=== PATIENT | female | born 1990 | race Caucasian/White ===

== ENCOUNTER 2017-07-12 15:10 | Emergency (ER) | payer OTHER, SELFPAY ==
[2017-07-12] MEDS ORDERED: IBUPROFEN 400 MG TAB ONE (15:56)
[2017-07-12] MEDS ORDERED: DEXAMETHASONE 10 MG/ML VIAL ONE (16:08)
--- NOTE | 2017-07-12 17:36 | EDPHYS ---
Physician Documentation [facility] Name: Delia Salgado Age: 27 yrs Sex: Female : 1990 Arrival Date: 07/12/2017 Time: 15:10 Bed 12 Private MD: ED Physician Jayce Curiel HPI: 07/12 16:01 This 27 yrs old Female presents to ER via Ambulatory with complaints of Sore pm1 Throat. 16:01 The patient presents with sore throat. The patient describes throat pain as constant, pm1 scratchy. Onset: The symptoms/episode began/occurred this morning. Severity of symptoms: in the emergency department the symptoms are actually worse. Modifying factors: the symptoms are aggravated by swallowing, Patient's oral intake status: good Denies contact with similarly ill indivduals. Associated signs and symptoms: Pertinent positives: fever, flu-like symptoms, nausea, Pertinent negatives chest pain, diarrhea, headache, vomiting. The patient has not experienced similar symptoms in the past. The patient has not recently seen a physician. 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 ROS: 16:01 Eyes: Negative for injury, pain, redness, and discharge. pm1 16:01 Neck: Negative for injury, pain, and swelling, Cardiovascular: Negative for chest pain, palpitations, and edema, Respiratory: Negative for shortness of breath, cough, wheezing, and pleuritic chest pain, Abdomen/GI: Negative for abdominal pain, nausea, vomiting, diarrhea, and constipation, Back: Negative for injury and pain, : Negative for injury, bleeding, discharge, and swelling, MS/Extremity: Negative for injury and deformity, Skin: Negative for injury, rash, and discoloration, Neuro: Negative for headache, weakness, numbness, tingling, and seizure. 16:01 Constitutional: Positive for body aches, fever, Negative for poor PO intake. 16:01 ENT: Positive for sore throat, Negative for ear pain, sinus congestion, sinus pain. Exam: 16:01 Constitutional: This is a well developed, well nourished patient who is awake, alert, pm1 and in no acute distress. Head/Face: Normocephalic, atraumatic. Eyes: Pupils equal round and reactive to light, extra-ocular motions intact. Lids and lashes normal. Conjunctiva and sclera are non-icteric and not injected. Cornea within normal limits. Periorbital areas with no swelling, redness, or edema. Neck: Trachea midline, no thyromegaly or masses palpated, and no cervical lymphadenopathy. Supple, full range of motion without nuchal rigidity, or vertebral point tenderness. No Meningismus. 16:01 Chest/axilla: Normal chest wall appearance and motion. Nontender with no deformity. No lesions are appreciated. Cardiovascular: Regular rate and rhythm with a normal S1 and S2. No gallops, murmurs, or rubs. Normal PMI, no JVD. No pulse deficits. Respiratory: Lungs have equal breath sounds bilaterally, clear to auscultation and percussion. No rales, rhonchi or wheezes noted. No increased work of breathing, no retractions or nasal flaring. Abdomen/GI: Soft, non-tender, with normal bowel sounds. No distension or tympany. No guarding or rebound. No evidence of tenderness throughout. Back: No spinal tenderness. No costovertebral tenderness. Full range of motion. Skin: Warm, dry with normal turgor. Normal color with no rashes, no lesions, and no evidence of cellulitis. MS/ Extremity: Pulses equal, no cyanosis. Neurovascular intact. Full, normal range of motion. 16:01 ENT: External ear(s): are unremarkable, Ear canal(s): are normal, TM's: are normal, Nose: is normal, Mouth: is normal, Posterior pharynx: Airway: normal, no evidence of obstruction, patent, Tonsils: bilaterally enlarged, with erythema, with exudate, no ulcerations, Uvula: normal, midline, peritonsillar mass, is not appreciated, pooling of secretions, is not appreciated. 16:01 Neuro: Orientation: is normal, Motor: is normal, moves all fours, strength is normal, strength is 5/5 in all extremities, Gait: is steady, at a normal pace, without difficulty. Vital Signs: 15:38 BP 139 / 65; Pulse 111; Resp 24; Temp 101.8; Pulse Ox 98% on R/A; Weight 113.4 kg; ph Height 5 ft. 4 in. (162.56 cm); Pain 8/10; 17:43 Pulse 98; Resp 18; Temp 99.6(TE); ss 15:38 Body Mass Index 42.91 (113.40 kg, 162.56 cm) ph MDM: 15:50 Patient medically screened. pm1 17:35 Data reviewed: vital signs. Data interpreted: Pulse oximetry: on room air is 98 %. pm1 Interpretation: normal. Counseling: I had a detailed discussion with the patient and/or guardian regarding: the historical points, exam findings, and any diagnostic results supporting the discharge/admit diagnosis, lab results, the need for outpatient follow up, to return to the emergency department if symptoms worsen or persist or if there are any questions or concerns that arise at home. 07/12 15:50 Order name: Strep; Complete Time: 16:24 pm1 07/12 15:50 Order name: Flu; Complete Time: 16:24 pm1 07/12 16:24 Order name: Throat Culture EDOK 07/12 16:31 Order name: [place] Screen Profile; Complete Time: 17:35 pm1 Administered Medications: 16:06 Drug: Ibuprofen 800 mg Route: PO; ph 17:43 Follow up: Response: No adverse reaction; Pain is decreased ss 16:12 Drug: Decadron 10 mg Route: IM; Site: right deltoid; ph 17:43 Follow up: Response: No adverse reaction ss Disposition: 07/12/17 17:36 Discharged to Home. Impression: Acute pharyngitis. - Condition is Stable. - Discharge Instructions: Pharyngitis, Salt Water Gargle. - Prescriptions for Amoxicillin 500 mg Oral Capsule - take 1 capsule by ORAL route every 8 hours for 10 days; 30 tablet. - Medication Reconciliation Form, Thank You Letter, Antibiotic Education form. - Follow up: Emergency Department; When: As needed; Reason: Worsening of condition. Follow up: Private Physician; When: 2 - 3 days; Reason: Recheck today's complaints, Continuance of care, Re-evaluation by your physician. - Problem is new. - Symptoms have improved. Addendum: 07/14/2017 07:35 Co-signature as Attending Physician, Jayce Curiel MD I agree with the assessment and w a plan of care. Signatures: Dispatcher [employer] Junie Luna RN RN ss Hall, Patricia, RN RN ph Bennie Hobbs, RADIOLOGY NURSE RADIOLOGY NURSE pm1 Jayce Curiel MD MD ca
--- NOTE | 2017-07-12 17:36 | ER ---
Nurse's Notes [facility] Name: Delia Salgado Age: 27 yrs Sex: Female : 1990 Arrival Date: 07/12/2017 Time: 15:10 Bed 12 Private MD: Diagnosis: Acute pharyngitis Presentation: 07/12 15:36 Presenting complaint: Patient states: My throat started hurting really bad this morning ph and I have been throwing up. I am also feeling SOB." Pt reports sore throat, cough, N/V, and fever, denies diarrhea. Transition of care: patient was not received from another setting of care. Onset of symptoms was July 12, 2017. Care prior to arrival: None. 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 Screenin:05 Abuse screen: Denies threats or abuse. Denies injuries from another. Nutritional ph screening: No deficits noted. Tuberculosis screening: No symptoms or risk factors identified. Fall Risk None identified. Assessment: 16:04 General: Appears in no apparent distress. uncomfortable, Behavior is calm, cooperative, ph appropriate for age, Reports chills for 0-12 hours. Pain: Complains of pain in throat and "all over". Neuro: Level of Consciousness is awake, alert, obeys commands, Oriented to person, place, time, situation. Cardiovascular: Capillary refill < 3 seconds Patient's skin is warm and dry. Respiratory: Airway is patent Respiratory effort is even, unlabored, Breath sounds are clear bilaterally. GI: Reports nausea, vomiting. EENT: Throat is reddened has enlarged tonsils bilaterally. Musculoskeletal: Circulation, motion, and sensation intact. Range of motion: intact in all extremities. Vital Signs: 15:38 BP 139 / 65; Pulse 111; Resp 24; Temp 101.8; Pulse Ox 98% on R/A; Weight 113.4 kg; ph Height 5 ft. 4 in. (162.56 cm); Pain 8/10; 17:43 Pulse 98; Resp 18; Temp 99.6(TE); ss 15:38 Body Mass Index 42.91 (113.40 kg, 162.56 cm) ph ED Course: 15:10 Patient arrived in ED. as 15:38 Triage completed. ph 15:39 Arm band placed on. ph 15:50 Bennie Hobbs NP is PHCP. pm1 15:50 Jayce Curiel MD is Attending Physician. pm1 16:04 Brit Cerda, RN is Primary Nurse. ph 16:05 Patient has correct armband on for positive identification. Bed in low position. Call light in reach. Side rails up X 1. 16:55 Initial lab(s) drawn, by me, sent to lab. 3 17:43 No provider procedures requiring assistance completed. Patient did not have IV access ss during this emergency room visit. Administered Medications: 16:06 Drug: Ibuprofen 800 mg Route: PO; ph 17:43 Follow up: Response: No adverse reaction; Pain is decreased ss 16:12 Drug: Decadron 10 mg Route: IM; Site: right deltoid; ph 17:43 Follow up: Response: No adverse reaction ss Outcome: 17:36 Discharge ordered by . pm1 17:43 Discharged to home ambulatory. ss 17:43 Condition: good 17:43 Discharge instructions given to patient, family, Instructed on discharge instructions, follow up and referral plans. medication usage, Demonstrated understanding of instructions, follow-up care, medications, Prescriptions given X 1. 17:44 Patient left the ED. ss Signatures: Sirisha Yepez Shelby, RN RN Brit Cerda, JOANNE RN Bennie Hobbs NP TESTING AND REGULATING TECHNICIAN pm1 Shoshana Morgan 3
== END 2017-07-12 17:44 | disposition home or self-care (01) ==
LOC: ER 15:10
DX: J02.9 Acute pharyngitis, unspecified (principal); F17.210 Nicotine dependence, cigarettes, uncomplicated
CPT/HCPCS: 36415; 86308; 87070; 87081; 87804; 96372; 99283; J1100

== ENCOUNTER 2017-08-30 19:18 | Emergency (ER) | payer SELFPAY ==
[2017-08-30] MEDS ORDERED: ALBUTEROL 2.5 MG/3 ML NEB SOL ONE (19:45)
[2017-08-30 20:16] LABS: Absolute Lymphocytes (CBC) 3.9 K/uL (0.7-4.9); Absolute Monocytes 1.2 K/uL (0.1-1.3); Absolute Neutrophil 8.3 K/uL (1.8-8.0); Basophils % 0.4 % (0-1.3); Eosinophils % 3.4 % (0-4.4); Hematocrit 41.2 % (36.0-45.0); Lymphocytes % 28.4 % (15.3-44.8); MCH 28.9 pg (27.0-35.0); MCV 86.6 fL (80-100); MPV 9.1 fL (7.6-11.3); Monocytes % 8.3 % (3.3-12.3); RBC Red Blood Cell Count 4.76 M/uL (3.86-4.86)
--- NOTE | 2017-08-30 20:19 | RAD REPORT ---
EXAM DESCRIPTION: Lui Pa And Lat (2 Views)08/30/2017 8:08 pm CLINICAL HISTORY: sob COMPARISON: None FINDINGS: An 11 millimeter nodular opacity overlies the left upper lobe. The right lung appears juli ar. The heart is normal size IMPRESSION: 11 millimeter nodular opacity overlying left upper lobe may represent a pulmonary nodul ar confluence of ribs and vessels. It is recommended that the patient have oblique, frontal and apica l lordotic views of the chest for further evaluation
[2017-08-30 20:27] LABS: BUN Blood Urea Nitrogen 19 mg/dL (6-20); Bicarbonate 23 mEq/L (21-31); Glucose Level 88 mg/dL (65-120); Potassium 3.7 mEq/L (3.6-5.0); Sodium Level 136 mEq/L (135-145)
[2017-08-30 20:29] LABS: Urine Bacteria <20 /HPF (<20); Urine RBC <5 /HPF (NONE SEEN)
[2017-08-30 20:30] LABS: Urine Blood NEGATIVE (NEG); Urine Glucose NEGATIVE (NEG); Urine Protein NEGATIVE (NEG); Urine pH 5.5 (5.0-7.0)
[2017-08-30 20:30] LABS: Urine Amorphous Sediment 1+ /HPF (NONE SEEN); Urine Culture Reflex Order NOT NEEDED; Urine Mucus 1+ /HPF (NONE SEEN)
--- NOTE | 2017-08-30 20:55 | RAD REPORT ---
EXAM DESCRIPTION: RAD - Chest W/ Apical Lordotic - 08/30/2017 8:40 pm CLINICAL HISTORY: sob FINDINGS: On the apical lordotic view the nodular opacity persists but it has a central lucency. Thi s which probably indicates confluence of ribs and vessels. A cavitating nodule can have this appearan ce. However, on the oblique views the nodular opacity is not clearly seen. In all likelihood the opacity represents confluence of ribs and vessels. As a precaution it is recomm ended that the patient have a followup frontal chest film in 3 months. If the nodule is not visualize d at that time then no further workup would be recommended
--- NOTE | 2017-08-30 20:56 | RAD REPORT ---
EXAM DESCRIPTION: RAD - Chest W Obliques - 08/30/2017 8:42 pm CLINICAL HISTORY: sob FINDINGS: On the apical lordotic view the nodular opacity persists but it has a central lucency. This which pro bably indicates confluence of ribs and vessels. A cavitating nodule can have this appearance. However, on the oblique views the nodular opacity is not clearly seen. In all likelihood the opacity represents confluence of ribs and vessels. As a precaution it is recomm ended that the patient have a followup frontal chest film in 3 months. If the nodule is not visualize d at that time then no further workup would be recommended
--- NOTE | 2017-08-30 21:07 | EDPHYS ---
Physician Documentation [facility] Name: Delia Salgado Age: 27 yrs Sex: Female : 1990 Arrival Date: 08/30/2017 Time: 19:19 Bed 30 Private MD: ED Physician Hao Terry HPI: 08/30 19:42 This 27 yrs old Female presents to ER via Ambulatory with complaints of rn Breathing Difficulty. 19:42 The patient has shortness of breath at rest, that woke him/her from sleep. Onset: The rn symptoms/episode began/occurred 2 week(s) ago. Duration: The symptoms are intermittent. The patient's shortness of breath is aggravated by nothing, is alleviated by nothing. Severity of symptoms: At their worst the symptoms were moderate in the emergency department the symptoms have improved. The patient has experienced similar episodes in the past. The patient has not recently seen a physician. Reports told in past has obstructive sleep apnea, can't afford CPAP, reports 2 weeks of intermittent sob, wakes up from sleep unable to breath, no fever/cough, better during day but is falling asleep randomly, no chest pain, no hx of dvt/pe. No trauma. . 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 - Social history:: Smoking status: Patient uses tobacco products, smokes one-half pack cigarettes per day. - Ebola Screening: : No symptoms or risks identified at this time. - Family history:: not pertinent. - Hospitalizations: : No recent hospitalization is reported. ROS: 19:42 Constitutional: Negative for fever, chills, and weight loss, Eyes: Negative for injury, rn pain, redness, and discharge, Neck: Negative for injury, pain, and swelling, Cardiovascular: Negative for chest pain, palpitations, and edema, Respiratory: Negative for cough, wheezing, and pleuritic chest pain, Abdomen/GI: Negative for abdominal pain, nausea, vomiting, diarrhea, and constipation, Back: Negative for injury and pain, MS/Extremity: Negative for injury and deformity, Skin: Negative for injury, rash, and discoloration, Neuro: Negative for headache, weakness, numbness, tingling, and seizure. Exam: 19:42 Constitutional: This is a well developed, well nourished patient who is awake, alert, rn and in no acute distress. Walked to room without difficulty Head/Face: Normocephalic, atraumatic. Eyes: Pupils equal round and reactive to light, extra-ocular motions intact. Lids and lashes normal. Conjunctiva and sclera are non-icteric and not injected. Cornea within normal limits. Periorbital areas with no swelling, redness, or edema. Cardiovascular: Regular rate and rhythm with a normal S1 and S2. No gallops, murmurs, or rubs. Normal PMI, no JVD. No pulse deficits. Respiratory: Clear bilateral breath sounds, no wheezing, + mild tachypnea Abdomen/GI: Soft, non-tender, with normal bowel sounds. No distension or tympany. No guarding or rebound. No evidence of tenderness throughout. Skin: Warm, dry with normal turgor. Normal color with no rashes, no lesions, and no evidence of cellulitis. MS/ Extremity: Pulses equal, no cyanosis. Neurovascular intact. Full, normal range of motion. Equal circumference. Neuro: Awake and alert, GCS 15, oriented to person, place, time, and situation. Cranial nerves II-XII grossly intact. Motor strength 5/5 in all extremities. Sensory grossly intact. Cerebellar exam normal. Normal gait. Vital Signs: 19:26 BP 153 / 104; Pulse 96; Resp 22; Temp 97.4; Pulse Ox 98% on R/A; Weight 113.4 kg; tl2 Height 5 ft. 4 in. (162.56 cm); Pain 0/10; 21:02 BP 123 / 84; Pulse 80; Resp 18; Pulse Ox 97% on 2 lpm NC; rk2 19:26 Body Mass Index 42.91 (113.40 kg, 162.56 cm) tl2 MDM: 19:29 Patient medically screened. rn 21:05 Differential diagnosis: Bronchitis pneumonia, Pneumothorax pulmonary edema, reactive rn airway disease, smoking related, DEBRA. Data reviewed: vital signs, nurses notes, lab test result(s), EKG, radiologic studies, and as a result, I will. Counseling: I had a detailed discussion with the patient and/or guardian regarding: the historical points, exam findings, and any diagnostic results supporting the discharge/admit diagnosis, lab results, radiology results, the need for outpatient follow up, to return to the emergency department if symptoms worsen or persist or if there are any questions or concerns that arise at home. Counseling: I had a detailed discussion with the patient and/or guardian regarding: smoking cessation. Response to treatment: the patient's symptoms have mildly improved after treatment, and as a result, I will discharge patient. Special discussion: I discussed with the patient/guardian in detail that at this point there is no indication for admission to the hospital. It is understood, however, that if the symptoms persist or worsen the patient needs to return immediately for re-evaluation. Based on the history and exam findings, there is no indication for further emergent testing or inpatient evaluation. I discussed with the patient/guardian the need to see the primary care provider for further evaluation of the symptoms. I discussed with the patient/guardian the need to see the medical technologist hematology for further evaluation of the symptoms. 21:05 Special discussion: I discussed with the patient the need to follow-up with the rn PCP/specialist for the noted incidental finding on X-ray/CT scanning. 08/30 19:37 Order name: CBC with Diff; Complete Time: 20:08/30 19:37 Order name: Basic Metabolic Panel; Complete Time: 20:08/30 19:37 Order name: Urine Microscopic Only; Complete Time: 20:08/30 19:37 Order name: Troponin (emerg Dept Use Only); Complete Time: 20:08/30 19:37 Order name: BNP; Complete Time: 20:59 08/30 19:37 Order name: D-Dimer; Complete Time: 21:05 08/30 19:37 Order name: IV Start; Complete Time: 20:07 08/30 19:37 Order name: EKG; Complete Time: 19:37 08/30 19:37 Order name: XRAY Chest Pa And Lat (2 Views); Complete Time: 20:08/30 20:11 Order name: Urine Dipstick--Ancillary (enter results); Complete Time: 20:59 eb 08/30 20:11 Order name: Urine --Ancillary (enter results); Complete Time: 20:59 eb 08/30 20:23 Order name: Chest W/ Apical Lordotic; Complete Time: 20:59 EDVA 08/30 20:24 Order name: Chest W Obliques; Complete Time: 20:59 EDVA 08/30 19:37 Order name: Urine Test (obtain specimen); Complete Time: 20:06 rn 08/30 19:37 Order name: Urine Dipstick-Ancillary (obtain specimen); Complete Time: 20:06 rn 08/30 19:37 Order name: EKG - Nurse/Tech; Complete Time: 20:31 rn 08/30 20:23 Order name: Labs - recollect needed; Complete Time: 20:48 eb Administered Medications: 19:56 Drug: Albuterol 2.5 mg Route: Inhalation; rk2 Disposition: 08/30/17 21:06 Discharged to Home. Impression: Dyspnea, unspecified. - Condition is Stable. - Discharge Instructions: Shortness of Breath, Smoking Cessation. - Prescriptions for Albuterol Sulfate 90 mcg/actuation - inhale 1-2 puff by INHALATION route every 4-6 hours; 1 Inhaler. - Medication Reconciliation Form, Thank You Letter, Antibiotic Education, Prescription Opioid Use form. - Follow up: Private Physician; When: As needed; Reason: Recheck today's complaints, Re-evaluation by your physician. - Problem is new. - Symptoms have improved. Signatures: Dispatcher [employer] EDVA Hao Terry MD MD rn Knox, Taylor, RN RN tl2 Naomy Ellis RN RN rk2 Barb Harris Corrections: (The following items were deleted from the chart) 21:29 21:06 08/30/2017 21:06 Discharged to Home. Impression: Dyspnea, unspecified. Condition rk2 is Stable. Forms are Medication Reconciliation Form, Thank You Letter, Antibiotic Education, Prescription Opioid Use. Follow up: Private Physician; When: As needed; Reason: Recheck today's complaints, Re-evaluation by your physician. Problem is new. Symptoms have improved. rn
--- NOTE | 2017-08-30 21:07 | ER ---
Nurse's Notes [facility] Name: Delia Salgado Age: 27 yrs Sex: Female : 1990 Arrival Date: 08/30/2017 Time: 19:19 Bed 30 Private MD: Diagnosis: Dyspnea, unspecified Presentation: 08/30 19:24 Presenting complaint: Patient states: I've been having problems with my sleep apnea and tl2 I wake up with difficulty breathing. I've been having difficulty breathing during the day and I think I pass out or fall asleep randomly. Denies cough or congestion. Transition of care: patient was not received from another setting of care. Onset of symptoms was August 16, 2017. Risk Assessment: Do you want to hurt yourself or someone else? Patient reports no desire to harm self or others. Initial Sepsis Screen: Does the patient meet any 2 criteria? No. Patient's initial sepsis screen is negative. Does the patient have a suspected source of infection? No. Patient's initial sepsis screen is negative. Care prior to arrival: None. 19:24 Method Of Arrival: Ambulatory tl2 19:24 Acuity: GARETH 3 tl2 Triage Assessment: 19:26 General: Appears in no apparent distress. comfortable, Behavior is calm, cooperative, tl2 appropriate for age. Pain: Denies pain. Respiratory: Reports shortness of breath Airway is patent Respiratory effort is even, unlabored, Respiratory pattern is regular, symmetrical, Onset: The symptoms/episode began/occurred 2 weeks ago, the patient has mild shortness of breath. 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 - Social history:: Smoking status: Patient uses tobacco products, smokes one-half pack cigarettes per day. - Ebola Screening: : No symptoms or risks identified at this time. - Family history:: not pertinent. - Hospitalizations: : No recent hospitalization is reported. Screenin:28 Abuse screen: Denies threats or abuse. Nutritional screening: No deficits noted. tl2 Tuberculosis screening: No symptoms or risk factors identified. Fall Risk None identified. Assessment: 19:30 Respiratory: Airway is patent Respiratory effort is even, unlabored, Respiratory rk2 pattern is regular, symmetrical, Breath sounds with wheezes bilaterally. 19:30 General: Appears in no apparent distress. well developed, well nourished, Behavior is rk2 calm, cooperative. Neuro: Level of Consciousness is alert, obeys commands, Oriented to person, place, time, situation. Cardiovascular: Rhythm is sinus rhythm. Derm: Skin is pink, warm \T\ dry. 21:01 Reassessment: Placed pt. onto oxygen via NA, O2 sats drop while pt. is sleeping to 89%. rk2 Vital Signs: 19:26 BP 153 / 104; Pulse 96; Resp 22; Temp 97.4; Pulse Ox 98% on R/A; Weight 113.4 kg; tl2 Height 5 ft. 4 in. (162.56 cm); Pain 0/10; 21:02 BP 123 / 84; Pulse 80; Resp 18; Pulse Ox 97% on 2 lpm NC; rk2 19:26 Body Mass Index 42.91 (113.40 kg, 162.56 cm) tl2 ED Course: 19:19 Patient arrived in ED. am2 19:26 Triage completed. tl2 19:26 Arm band placed on right wrist. tl2 19:29 Hao Terry MD is Attending Physician. rn 19:30 Patient has correct armband on for positive identification. Bed in low position. Call rk2 light in reach. 19:38 Naomy Ellis, RN is Primary Nurse. rk2 20:05 Patient moved to radiology via wheelchair. kc2 20:05 X-ray completed. Patient tolerated procedure well. kc2 20:06 Patient moved back from radiology. kc2 20:07 XRAY Chest Pa And Lat (2 Views) In Process Unspecified. EDMS 20:31 Chest W Obliques Sent. rk2 20:31 Chest W/ Apical Lordotic Sent. rk2 20:40 Chest W/ Apical Lordotic In Process Unspecified. EDMS 20:40 Chest W Obliques In Process Unspecified. EDMS 21:28 No provider procedures requiring assistance completed. IV discontinued. rk2 Administered Medications: 19:56 Drug: Albuterol 2.5 mg Route: Inhalation; rk2 Outcome: 21:06 Discharge ordered by . rn 21:28 Discharged to home ambulatory. rk2 21:28 Condition: good 21:28 Discharge instructions given to patient, Prescriptions given X 1. 21:29 Patient left the ED. rk2 Signatures: Dispatcher [employer] EDMS Hao Terry MD MD rn Carr, Kelsie kc2 Nayana Stein RN RN tl2 Kym Doherty Rhonda, RN RN rk2
--- NOTE | 2017-08-31 10:36 | EKG ---
Test Date: 2017-08-30 Test Time: 20:27:31 Potato Chip Maker: NOLBERTO MEASUREMENT RESULTS: Intervals: Rate: 86 OH: 116 QRSD: 90 QT: 380 QTc: 454 [place]: P: 8 OH: 116 QRS: 3 T: -8 INTERPRETIVE STATEMENTS: Normal sinus rhythm Possible Inferior infarct, age undetermined Abnormal ECG No previous ECG available for comparison Electronically Signed On 08-31-17 10:34:52 CDT by Daryn Hendricks
== END 2017-08-30 21:29 | disposition home or self-care (01) ==
LOC: ER 19:18
DX: R06.00 Dyspnea, unspecified (principal); F17.210 Nicotine dependence, cigarettes, uncomplicated; G47.33 Obstructive sleep apnea (adult) (pediatric)
CPT/HCPCS: 36415; 71021; 71022; 71046; 80048; 81003; 81015; 81025; 83880; 84484; 85025; 85379; 93005; 99284

== ENCOUNTER 2018-04-11 08:28 | Emergency (ER) | payer SELFPAY ==
--- NOTE | 2018-04-11 09:11 | EDPHYS ---
Physician Documentation [facility] Name: Delia Salgado Age: 28 yrs Sex: Female : 1990 Arrival Date: 04/11/2018 Time: 08:31 Bed 6 Private MD: None, None ED Physician Hao Terry HPI: 04/11 09:12 This 28 yrs old Female presents to ER via Ambulatory with complaints of jr8 Cough, Vomiting, Breathing Difficulty. 09:12 The patient or guardian reports cough, that is intermittent, described as moderate, jr8 with productive sputum, that is yellow. Onset: The symptoms/episode began/occurred gradually, 2 week(s) ago. Severity of symptoms: At their worst the symptoms were moderate, in the emergency department the symptoms are unchanged. Modifying factors: The symptoms are alleviated by nothing, the symptoms are aggravated by nothing. Associated signs and symptoms: Pertinent positives: rhinorrhea, sore throat. The patient has not experienced similar symptoms in the past. The patient has not recently seen a physician. 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 - Social history:: Smoking status: Patient uses tobacco products, smokes one-half pack cigarettes per day. - Ebola Screening: : Patient negative for fever greater than or equal to 101.5 degrees Fahrenheit, and additional compatible Ebola Virus Disease symptoms Patient denies exposure to infectious person Patient denies travel to an Ebola-affected area in the 21 days before illness onset No symptoms or risks identified at this time. ROS: 09:12 Eyes: Negative for injury, pain, redness, and discharge, Neck: Negative for injury, jr8 pain, and swelling, Cardiovascular: Negative for chest pain, palpitations, and edema, Abdomen/GI: Negative for abdominal pain, nausea, vomiting, diarrhea, and constipation, Back: Negative for injury and pain, MS/Extremity: Negative for injury and deformity, Skin: Negative for injury, rash, and discoloration, Neuro: Negative for headache, weakness, numbness, tingling, and seizure. 09:12 Constitutional: Negative for body aches, chills, fever. 09:12 ENT: Positive for rhinorrhea, sinus congestion, sore throat. 09:12 Respiratory: Positive for cough, Negative for shortness of breath, wheezing. Exam: 09:12 Eyes: Pupils equal round and reactive to light, extra-ocular motions intact. Lids and jr8 lashes normal. Conjunctiva and sclera are non-icteric and not injected. Cornea within normal limits. Periorbital areas with no swelling, redness, or edema. Neck: Trachea midline, no thyromegaly or masses palpated, and no cervical lymphadenopathy. Supple, full range of motion without nuchal rigidity, or vertebral point tenderness. No Meningismus. Cardiovascular: Regular rate and rhythm with a normal S1 and S2. No gallops, murmurs, or rubs. Normal PMI, no JVD. No pulse deficits. Respiratory: Lungs have equal breath sounds bilaterally, clear to auscultation and percussion. No rales, rhonchi or wheezes noted. No increased work of breathing, no retractions or nasal flaring. Abdomen/GI: Soft, non-tender, with normal bowel sounds. No distension or tympany. No guarding or rebound. No evidence of tenderness throughout. Back: No spinal tenderness. No costovertebral tenderness. Full range of motion. Skin: Warm, dry with normal turgor. Normal color with no rashes, no lesions, and no evidence of cellulitis. MS/ Extremity: Pulses equal, no cyanosis. Neurovascular intact. Full, normal range of motion. Neuro: Awake and alert, GCS 15, oriented to person, place, time, and situation. Cranial nerves II-XII grossly intact. Motor strength 5/5 in all extremities. Sensory grossly intact. Cerebellar exam normal. Normal gait. 09:12 ENT: External ear(s): are unremarkable, Ear canal(s): are normal, clear, TM's: are normal, no evidence of bulging, no dullness, no erythema, no fluid levels, no hemotympanum, no rupture, normal bony landmarks, normal mobility, Nose: External nose: no obvious acute abnormality, Nasal septum: is midline, Nasal mucosa: moist, Turbinates: are swollen bilaterally, Mouth: Lips: moist, Oral mucosa: pink and intact, moist, Gums: pink, Tongue: is moist, Posterior pharynx: Airway: patent, Tonsils: bilaterally enlarged, with erythema, no exudate, no ulcerations, Uvula: midline, no erythema, edematous, swelling, is not appreciated, erythema, is not appreciated. Vital Signs: 08:43 BP 116 / 87; Pulse 96; Resp 16; Pulse Ox 96% on R/A; Weight 113.4 kg; Height 5 ft. 4 ch in. (162.56 cm); Pain 5/10; 09:31 BP 110 / 58; Pulse 84; Resp 15; Temp 98.3; Pulse Ox 99% on R/A; Pain 5/10; ch 08:43 Body Mass Index 42.91 (113.40 kg, 162.56 cm) ch MDM: 08:38 Patient medically screened. jr8 09:09 Data reviewed: vital signs, nurses notes, lab test result(s), and as a result, I will jr8 discharge patient. Data interpreted: Pulse oximetry: on room air is 96 %. Interpretation: normal. Counseling: I had a detailed discussion with the patient and/or guardian regarding: the historical points, exam findings, and any diagnostic results supporting the discharge/admit diagnosis, lab results, the need for outpatient follow up, a family practitioner, to return to the emergency department if symptoms worsen or persist or if there are any questions or concerns that arise at home. 04/11 09:00 Order name: Urine Dipstick--Ancillary (enter results); Complete Time: 09:24 bd 04/11 09:00 Order name: Urine --Ancillary (enter results); Complete Time: 09:24 bd 04/11 09:09 Order name: Strep jr8 Administered Medications: No medications were administered Disposition: 11:49 Co-signature as Attending Physician, Hao Terry MD. rn Disposition: 04/11/18 09:10 Discharged to Home. Impression: Acute pharyngitis, Acute upper respiratory infection, unspecified. - Condition is Stable. - Discharge Instructions: Pharyngitis, Upper Respiratory Infection, Adult. - Prescriptions for Augmentin 875- 125 mg Oral Tablet - take 1 tablet by ORAL route every 12 hours for 10 days; 20 tablet. Prednisone 20 mg Oral Tablet - take 1 tablet by ORAL route once daily for 5 days; 5 tablet. Claritin- D 24 Hour 10-240 mg Oral Tablet Sustained Release 24 hr - take 1 tablet by ORAL route once daily As needed; 20 tablet. Guaifenesin AC 10- 100 mg/5 mL Oral Liquid - take 10 milliliter by ORAL route every 4 hours As needed; 240 milliliter. - Work release form, Family Work Release, Medication Reconciliation Form, Thank You Letter, Antibiotic Education, Prescription Opioid Use form. - Follow up: Private Physician; When: 5 - 6 days; Reason: Recheck today's complaints, Continuance of care, Re-evaluation by your physician. - Problem is new. - Symptoms have improved. Signatures: Dispatcher [employer] EDLucy Woodward RN RN ch Nieto, Roman, MD MD rn Roszak, Josh, PA PA jr8 Corrections: (The following items were deleted from the chart) 09:34 09:10 04/11/2018 09:10 Discharged to Home. Impression: Acute pharyngitis; Acute upper ch respiratory infection, unspecified. Condition is Stable. Forms are Medication Reconciliation Form, Thank You Letter, Antibiotic Education, Prescription Opioid Use. Follow up: Private Physician; When: 5 - 6 days; Reason: Recheck today's complaints, Continuance of care, Re-evaluation by your physician. Problem is new. Symptoms have improved. jr8
--- NOTE | 2018-04-11 09:11 | ER ---
Nurse's Notes [facility] Name: Delia Salgado Age: 28 yrs Sex: Female : 1990 Arrival Date: 04/11/2018 Time: 08:31 Bed 6 Private MD: None, None Diagnosis: Acute pharyngitis;Acute upper respiratory infection, unspecified Presentation: 04/11 08:40 Presenting complaint: Patient states: cough, congestion, "cold" for two weeks, coughing ch up thick green phlem, cant sleep at night, does not have sleep apnea mask. Transition of care: patient was not received from another setting of care. Onset of symptoms was March 28, 2018. Risk Assessment: Do you want to hurt yourself or someone else? Patient reports no desire to harm self or others. Initial Sepsis Screen: Does the patient meet any 2 criteria? No. Patient's initial sepsis screen is negative. Does the patient have a suspected source of infection? No. Patient's initial sepsis screen is negative. Care prior to arrival: None. 08:40 Method Of Arrival: Ambulatory 08:40 Acuity: GARETH 3 Triage Assessment: 08:43 General: Appears in no apparent distress. comfortable, Behavior is calm, cooperative, ch appropriate for age. Pain: Complains of pain in throat Pain currently is 5 out of 10 on a pain scale. Neuro: No deficits noted. Respiratory: Reports cough that is productive, Airway is patent Trachea midline Respiratory effort is even, unlabored. GI: Reports nausea, vomiting. Derm: Skin is pink, warm \\T\\ dry. 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 - Social history:: Smoking status: Patient uses tobacco products, smokes one-half pack cigarettes per day. - Ebola Screening: : Patient negative for fever greater than or equal to 101.5 degrees Fahrenheit, and additional compatible Ebola Virus Disease symptoms Patient denies exposure to infectious person Patient denies travel to an Ebola-affected area in the 21 days before illness onset No symptoms or risks identified at this time. Screenin:31 Abuse screen: Denies threats or abuse. Denies injuries from another. Nutritional screening: No deficits noted. Tuberculosis screening: No symptoms or risk factors identified. Fall Risk None identified. Assessment: 09:31 Reassessment: Patient appears in no apparent distress at this time. Patient and/or ch family updated on plan of care and expected duration. Pain level reassessed. Patient is alert, oriented x 3, equal unlabored respirations, skin warm/dry/pink. GI: Bowel sounds present X 4 quads. Vital Signs: 08:43 BP 116 / 87; Pulse 96; Resp 16; Pulse Ox 96% on R/A; Weight 113.4 kg; Height 5 ft. 4 ch in. (162.56 cm); Pain 5/10; 09:31 BP 110 / 58; Pulse 84; Resp 15; Temp 98.3; Pulse Ox 99% on R/A; Pain 5/10; ch 08:43 Body Mass Index 42.91 (113.40 kg, 162.56 cm) ED Course: 08:31 Patient arrived in ED. mr 08:32 None, None is Private Physician. mr 08:36 Lucy Reed, JOANNE is Primary Nurse. ch 08:38 [facility]se [facility] jr8 08:38 Hao Terry MD is Attending Physician. jr8 08:42 Triage completed. ch 08:43 Arm band placed on right wrist. 09:01 Urine --Ancillary (enter results) Sent. 5 09:02 Patient has correct armband on for positive identification. Placed in gown. Bed in low mh5 position. Call light in reach. Adult w/ patient. Warm blanket given. Pulse ox on. NIBP on. 09:02 Urine Dipstick--Ancillary (enter results) Sent. 5 09:02 Urine collected: clean catch specimen, issa colored. 5 09:29 Strep Sent. 5 09:29 Strep swab sent to lab. 5 09:31 No apparent distress. Resting quietly. 09:31 No provider procedures requiring assistance completed. Patient did not have IV access ch during this emergency room visit. Administered Medications: No medications were administered Outcome: :10 Discharge ordered by . jr8 09:31 Discharged to home ambulatory, with family. 09:31 Condition: stable 09:31 Discharge instructions given to patient, family, Instructed on discharge instructions, follow up and referral plans. no drinking with medication, no driving heavy equipment, medication usage, Demonstrated understanding of instructions, follow-up care, medications, Prescriptions given X 4. 09:34 Patient left the ED. Signatures: Lucy Reed RN RN ch Rivera, Mary mr Roszak, Josh, PA PA [facility] Maribel Yepez [facility]
[2018-04-11 09:13] LABS: Urine Blood NEGATIVE (NEG); Urine Glucose NEGATIVE (NEG); Urine Protein 2+ (NEG); Urine pH 5.5 (5.0-7.0)
== END 2018-04-11 09:34 | disposition home or self-care (01) ==
LOC: ER 08:28
DX: J06.9 Acute upper respiratory infection, unspecified (principal); F17.210 Nicotine dependence, cigarettes, uncomplicated
CPT/HCPCS: 81003; 81025; 87081; 99283

== ENCOUNTER 2018-12-30 09:29 | Emergency (ER) | payer SELFPAY ==
[2018-12-30] MEDS ORDERED: ASPIRIN 81 MG CHEWABLE TABLET ONE (10:12)
[2018-12-30] MEDS ORDERED: NA CHLORIDE 0.9% 1,000 ML ONE (10:13)
[2018-12-30] MEDS ORDERED: FOLIC ACID 5 MG/ML VIAL ONE (10:13)
[2018-12-30 10:27] LABS: Absolute Lymphocytes (CBC) 3.2 K/uL (0.7-4.9); Basophils % 0.8 % (0-1.3); Hematocrit 41.9 % (36.0-45.0); Lymphocytes % 26.6 % (15.3-44.8); RBC Red Blood Cell Count 4.81 M/uL (3.86-4.86)
[2018-12-30 10:35] LABS: Barbiturates NEGATIVE (NEGATIVE); Benzodiazepines NEGATIVE (NEGATIVE); Cocaine NEGATIVE (NEGATIVE); METHAMPHETAM POSITIVE (NEGATIVE); Methadone NEGATIVE (NEGATIVE); Opiates NEGATIVE (NEGATIVE); Phencyclidine NEGATIVE (NEGATIVE); THC Cannibis POSITIVE (NEGATIVE)
[2018-12-30 10:37] LABS: Protime INR 1.04
[2018-12-30 10:47] LABS: ALT/SGPT 35 U/L (12-78); AST/SGOT 16 U/L (15-37); Albumin 3.7 g/dL (3.4-5.0); Alkaline Phosphatase 65 U/L (45-117); BUN Blood Urea Nitrogen 14 mg/dL (7-18); Bicarbonate 26 mmol/L (21-32); Bilirubin Direct < 0.1 mg/dL (0-0.2); Bilirubin Total 0.2 mg/dL (0.2-1.0); Glucose Level 104 mg/dL (74-106); NT PRO-BNP 30 pg/mL (<125); Potassium 3.9 mmol/L (3.5-5.1); Protein, Total 7.1 g/dL (6.4-8.2); Sodium Level 141 mmol/L (136-145); Troponin (Emerg Dept Use Only) < 0.02 ng/mL (0.0-0.045)
--- NOTE | 2018-12-30 10:55 | RAD REPORT ---
EXAM DESCRIPTION: CT - [id number] - 12/30/2018 10:14 am CLINICAL HISTORY: Headache, neck pain, right arm numbness COMPARISON: None. TECHNIQUE: Axial 5 mm thick images of the head were obtained. Axial 2 mm thick images of the cervic al spine were obtained with sagittal and coronal reconstruction images generated and reviewed. All CT scans are performed using dose optimization technique as appropriate and may include automated exposure control or mA/KV adjustment according to patient size. FINDINGS: No intracranial hemorrhage, mass, edema or acute intracranial finding. No suspicion for acute infarct ion. No extra-axial fluid collections. Mastoid air cells are clear. Mucosal thickening is present in the sphenoid sinus. No globe or orbit abnormality seen. Cervical bodies are normal in height. No subluxation abnormality. Cervical lordosis could be muscle s pasm or positioning artifact. No disk space narrowing. No fracture or acute bony abnormality. Central canal detail is inherently limited. Examination is not allow adequate assessment of any possible dis c herniation or central canal abnormality. No paraspinal mass or hematoma. IMPRESSION: Negative CT head examination for acute or significant finding. Negative CT cervical spine examination for acute or significant finding. Central canal is inherently limited detail. Disc herniations cannot be evaluated adequately. Spinal c ord cannot be evaluated.
--- NOTE | 2018-12-30 11:00 | RAD REPORT ---
EXAM DESCRIPTION: RAD - Chest Single View - 12/30/2018 10:23 am CLINICAL HISTORY: Cough, right arm numbness COMPARISON: August 2017 TECHNIQUE: AP portable chest image was obtained 1021 hours . FINDINGS: Lungs are clear. Possible nodular focus seen in the left upper lung field on the prior negrita dy is not identified currently. Heart and vasculature are normal. No measurable pleural effusion and no pneumothorax. No acute bony abnormality seen. No acute aortic findings suspected. IMPRESSION: No acute cardiopulmonary process.
[2018-12-30 11:32] LABS: Urine Blood NEGATIVE (NEG); Urine Glucose NEGATIVE (NEG); Urine Protein 1+ (NEG)
--- NOTE | 2018-12-30 11:54 | ER ---
Nurse's Notes [facility] Name: Delia Salgado Age: 28 yrs Sex: Female : 1990 Arrival Date: 12/30/2018 Time: 09:30 Bed 19 Private MD: Diagnosis: Headache;Obesity, unspecified;Radiculopathy;Radiculopathy, cervical region;Adverse effect of amphetamines Presentation: 12/30 09:45 Presenting complaint: Patient states: R arm numbness that began yesterday morning at ss 0900 lasting approximately 5-10 minutes with intermittent drowsiness, headaches to bilateral roman catholic area and dizziness. Transition of care: patient was not received from another setting of care. Onset of symptoms was December 29, 2018. Risk Assessment: Do you want to hurt yourself or someone else? Patient reports no desire to harm self or others. Initial Sepsis Screen: Does the patient meet any 2 criteria? No. Patient's initial sepsis screen is negative. Does the patient have a suspected source of infection? No. Patient's initial sepsis screen is negative. Care prior to arrival: None. 09:45 Method Of Arrival: Ambulatory ss 09:45 Acuity: GARETH 3 ss Historical: - Allergies: 09:44 No Known Allergies; ss - Home Meds: 09:44 None [Active]; ss - PMHx: 09:44 Sleep Apnea; ss - PSHx: 09:44 ; ss - Immunization history:: Adult Immunizations unknown. - Social history:: Smoking status: Patient uses tobacco products, smokes one-half pack cigarettes per day. - Ebola Screening: : Patient denies exposure to infectious person Patient denies travel to an Ebola-affected area in the 21 days before illness onset. - Family history:: not pertinent. Screenin:50 Abuse screen: Denies threats or abuse. Nutritional screening: No deficits noted. em Tuberculosis screening: No symptoms or risk factors identified. Fall Risk None identified. Assessment: 09:50 General: Appears in no apparent distress. comfortable, Behavior is calm, cooperative, em Denies fever. Pain: Denies pain. Neuro: Level of Consciousness is awake, alert, obeys commands, Oriented to person, place, time, situation, Casing Puller are equal bilaterally Moves all extremities. Gait is steady, Speech is normal, Facial symmetry appears normal, Pupils are PERRLA, paresthesias in right arm Reports dizziness, headache paresthesias in right arm comes and goes, currently denies paresthesias. Cardiovascular: Denies chest pain, shortness of breath, Capillary refill < 3 seconds Patient's skin is warm and dry. Respiratory: Airway is patent Respiratory effort is even, unlabored, Respiratory pattern is regular, symmetrical. GI: Patient currently denies nausea, vomiting. Derm: Skin is intact, is healthy with good turgor, Skin is pink, warm \T\ dry. Musculoskeletal: Capillary refill < 3 seconds, Range of motion: intact in all extremities. 10:51 Reassessment: Patient appears in no apparent distress at this time. Patient and/or em family updated on plan of care and expected duration. Pain level reassessed. Patient is alert, oriented x 3, equal unlabored respirations, skin warm/dry/pink. 12:18 Reassessment: Patient appears in no apparent distress at this time. Patient and/or em family updated on plan of care and expected duration. Pain level reassessed. Patient is alert, oriented x 3, equal unlabored respirations, skin warm/dry/pink. Vital Signs: 09:43 BP 123 / 79; Pulse 90; Resp 16; Temp 98.5(TE); Pulse Ox 97% on R/A; Weight 131.54 kg; Height 5 ft. 4 in. (162.56 cm); Pain 0/10; 10:34 BP 113 / 50; Pulse 80; Resp 18; Temp 99.0(O); Pulse Ox 97% on R/A; mh5 12:19 BP 107 / 57; Pulse 63; Resp 18; Pulse Ox 95% on R/A; em 09:43 Body Mass Index 49.78 (131.54 kg, 162.56 cm) ED Course: 09:30 Patient arrived in ED. am2 09:38 Carlos Mitchell MD is Attending Physician. mera 09:43 Arm band placed on right wrist. ss 09:45 Peter Crocker LVN is Primary Nurse. em 09:47 Triage completed. ss 09:50 Patient has correct armband on for positive identification. Placed in gown. Bed in low em position. Call light in reach. Side rails up X2. Pulse ox on. NIBP on. 09:50 Initial lab(s) drawn, by me, sent to lab. Inserted saline lock: 20 gauge in right em antecubital area, using aseptic technique. Blood collected. 10:10 UDS Sent. mh5 10:15 CT Head C Spine In Process Unspecified. EDMS 10:24 XRAY Chest (1 view) In Process Unspecified. EDMS 10:34 EKG done, by ED staff, reviewed by Carlos Mitchell MD. 5 10:38 Basic Metabolic Panel Sent. 5 10:38 CBC with Diff Sent. 5 10:38 LFT's Sent. mh5 10:39 Magnesium Sent. 5 10:39 NT PRO-BNP Sent. mh5 10:39 PT-INR Sent. 5 10:39 Troponin (emerg Dept Use Only) Sent. 5 11:53 Tito Paz MD is Referral Physician. [facility] 12:18 No provider procedures requiring assistance completed. IV discontinued, intact, em bleeding controlled, No redness/swelling at site. Pressure dressing applied. Administered Medications: 10:45 Drug: NS 0.9% 1000 ml Route: IV; Rate: 1 bolus; Site: right antecubital; ss 12:18 Follow up: IV Status: Order to discontinue infusion; IV Intake: 500ml em 10:45 Drug: foLIC Acid 1 mg Route: IVPB; Site: right antecubital; ss 12:18 Follow up: Response: No adverse reaction; IV Status: Completed infusion em 11:54 Drug: Aspirin 162 mg Route: PO; em 12:18 Follow up: Response: No adverse reaction em Intake: 12:18 IV: 500ml; Total: 500ml. em Outcome: 11:53 Discharge ordered by . mera 12:18 Discharged to home ambulatory. em 12:18 Condition: good 12:18 Discharge instructions given to patient, Instructed on discharge instructions, follow up and referral plans. medication usage, Demonstrated understanding of instructions, follow-up care, medications, Prescriptions given X 2. 12:19 Patient left the ED. em Signatures: Dispatcher [employer] Carlos Nye MD MD cha Munoz, Edgar, SUPERVISOR CAPACITOR PROCESSING SUPERVISOR CAPACITOR PROCESSING em Junie Young, JOANNE RN Maribel Murguia 5 Kym Doherty am2 Corrections: (The following items were deleted from the chart) 10:18 09:50 Neuro: Level of Consciousness is awake, alert, obeys commands, Oriented to em person, place, time, situation, Reports dizziness, headache paresthesias in right arm comes and goes, currently denies paresthesias em
--- NOTE | 2018-12-30 11:55 | EDPHYS ---
Physician Documentation [facility] Name: Delia Salgado Age: 28 yrs Sex: Female : 1990 Arrival Date: 12/30/2018 Time: 09:30 Bed 19 Private MD: JUAN RAMON Physician Carlos Mitchell HPI: 12/30 09:50 This 28 yrs old Female presents to ER via Ambulatory with complaints of mera Headache, Dizziness, General Weakness, Numbness Of Arm - hand. 09:50 The patient complains of pain to the top of head, forehead, left frontal area, left mera side of the back of head, right frontal area and right side of the back of head. The patient describes the headache as aching. Onset: The symptoms/episode began/occurred yesterday. Associated signs and symptoms: The patient has no apparent associated signs or symptoms. Historical: - Allergies: 09:44 No Known Allergies; ss - Home Meds: 09:44 None [Active]; ss - PMHx: :44 Sleep Apnea; ss - PSHx: 09:44 ; ss - Immunization history:: Adult Immunizations unknown. - Social history:: Smoking status: Patient uses tobacco products, smokes one-half pack cigarettes per day. - Ebola Screening: : Patient denies exposure to infectious person Patient denies travel to an Ebola-affected area in the 21 days before illness onset. - Family history:: not pertinent. ROS: 09:51 Constitutional: Negative for fever, chills, and weight loss, Eyes: Negative for injury, mera pain, redness, and discharge, ENT: Negative for injury, pain, and discharge, Neck: Negative for injury, pain, and swelling, Cardiovascular: Negative for chest pain, palpitations, and edema, Respiratory: Negative for shortness of breath, cough, wheezing, and pleuritic chest pain, Abdomen/GI: Negative for abdominal pain, nausea, vomiting, diarrhea, and constipation, Back: Negative for injury and pain, : Negative for injury, bleeding, discharge, and swelling, Skin: Negative for injury, rash, and discoloration, Psych: Negative for depression, anxiety, suicide ideation, homicidal ideation, and hallucinations, Allergy/Immunology: Negative for hives, rash, and allergies, Endocrine: Negative for neck swelling, polydipsia, polyuria, polyphagia, and marked weight changes, Hematologic/Lymphatic: Negative for swollen nodes, abnormal bleeding, and unusual bruising. 09:51 MS/extremity: Positive for paresthesias, of the right arm. Exam: 09:51 Radiologist reports: see report, roberto tesfaye 09:51 Constitutional: This is a well developed, well nourished patient who is awake, alert, and in no acute distress. Head/Face: Normocephalic, atraumatic. Eyes: Pupils equal round and reactive to light, extra-ocular motions intact. Lids and lashes normal. Conjunctiva and sclera are non-icteric and not injected. Cornea within normal limits. Periorbital areas with no swelling, redness, or edema. ENT: Nares patent. No nasal discharge, no septal abnormalities noted. Tympanic membranes are normal and external auditory canals are clear. Oropharynx with no redness, swelling, or masses, exudates, or evidence of obstruction, uvula midline. Mucous membranes moist. Neck: Trachea midline, no thyromegaly or masses palpated, and no cervical lymphadenopathy. Supple, full range of motion without nuchal rigidity, or vertebral point tenderness. No Meningismus. Chest/axilla: Normal chest wall appearance and motion. Nontender with no deformity. No lesions are appreciated. Cardiovascular: Regular rate and rhythm with a normal S1 and S2. No gallops, murmurs, or rubs. Normal PMI, no JVD. No pulse deficits. Respiratory: Lungs have equal breath sounds bilaterally, clear to auscultation and percussion. No rales, rhonchi or wheezes noted. No increased work of breathing, no retractions or nasal flaring. Abdomen/GI: Soft, non-tender, with normal bowel sounds. No distension or tympany. No guarding or rebound. No evidence of tenderness throughout. Back: No spinal tenderness. No costovertebral tenderness. Full range of motion. Skin: Warm, dry with normal turgor. Normal color with no rashes, no lesions, and no evidence of cellulitis. MS/ Extremity: Pulses equal, no cyanosis. Neurovascular intact. Full, normal range of motion. Neuro: Awake and alert, GCS 15, oriented to person, place, time, and situation. Cranial nerves II-XII grossly intact. Motor strength 5/5 in all extremities. Sensory grossly intact. Cerebellar exam normal. Normal gait. Psych: Awake, alert, with orientation to person, place and time. Behavior, mood, and affect are within normal limits. Vital Signs: 09:43 BP 123 / 79; Pulse 90; Resp 16; Temp 98.5(TE); Pulse Ox 97% on R/A; Weight 131.54 kg; ss Height 5 ft. 4 in. (162.56 cm); Pain 0/10; 10:34 BP 113 / 50; Pulse 80; Resp 18; Temp 99.0(O); Pulse Ox 97% on R/A; mh5 12:19 BP 107 / 57; Pulse 63; Resp 18; Pulse Ox 95% on R/A; em 09:43 Body Mass Index 49.78 (131.54 kg, 162.56 cm) ss MDM: 09:38 Patient medically screened. [facility] 09:52 Data reviewed: vital signs, nurses notes, lab test result(s), EKG, radiologic studies, [facility] CT scan, plain films. 12/30 09:50 Order name: Basic Metabolic Panel; Complete Time: 11:51 [facility] 12/30 09:50 Order name: CBC with Diff; Complete Time: 11:51 mera 12/30 09:50 Order name: LFT's; Complete Time: 11:51 [facility] 12/30 09:50 Order name: Magnesium; Complete Time: 11:51 mera 12/30 09:50 Order name: NT PRO-BNP; Complete Time: 11:51 mera 12/30 09:50 Order name: PT-INR; Complete Time: 11:51 12/30 09:50 Order name: Troponin (emerg Dept Use Only); Complete Time: 11:51 mera 12/30 09:50 Order name: XRAY Chest (1 view); Complete Time: 11:51 [facility] 12/30 09:50 Order name: CT Head C Spine; Complete Time: 11:51 [facility] 12/30 09:50 Order name: UDS; Complete Time: 11:51 [facility] 12/30 10:59 Order name: Urine Dipstick--Ancillary (enter results) 12/30 10:59 Order name: Urine --Ancillary (enter results) 12/30 09:50 Order name: EKG; Complete Time: 09:52 [facility] 12/30 09:50 Order name: Cardiac monitoring; Complete Time: 10:39 [facility] 12/30 09:50 Order name: EKG - Nurse/Tech; Complete Time: 10:10 [facility] 12/30 09:50 Order name: IV Saline Lock; Complete Time: 10:39 [facility] 12/30 09:50 Order name: Labs collected and sent; Complete Time: 10:51 [facility] 12/30 09:50 Order name: O2 Per Protocol; Complete Time: 10:51 [facility] 12/30 09:50 Order name: O2 Sat Monitoring; Complete Time: 10:50 [facility] 12/30 09:50 Order name: Urine Dipstick-Ancillary (obtain specimen); Complete Time: 10:10 [facility] 12/30 09:50 Order name: Urine Test (obtain specimen); Complete Time: 10:10 [facility] Administered Medications: 10:45 Drug: NS 0.9% 1000 ml Route: IV; Rate: 1 bolus; Site: right antecubital; ss 12:18 Follow up: IV Status: Order to discontinue infusion; IV Intake: 500ml em 10:45 Drug: foLIC Acid 1 mg Route: IVPB; Site: right antecubital; ss 12:18 Follow up: Response: No adverse reaction; IV Status: Completed infusion em 11:54 Drug: Aspirin 162 mg Route: PO; em 12:18 Follow up: Response: No adverse reaction em Disposition: 12/30/18 11:53 Discharged to Home. Impression: Headache, Obesity, unspecified, Radiculopathy, Radiculopathy, cervical region, Adverse effect of amphetamines. - Condition is Stable. - Discharge Instructions: Cervical Radiculopathy, General Headache Without Cause, Obesity, Adult, Aspirin and Your Heart, General Headache Without Cause, Njul-pb-[id number], Cervical Radiculopathy, Tndw-zz-Qakx, Obesity, Adult, Jeay-jl-Ompw, Radicular Pain. - Prescriptions for Vitamin 27- 0.8 mg Oral Tablet - take 1 tablet by ORAL route once daily; 30 tablet. Meclizine 25 mg Oral Tablet - take 1 tablet by ORAL route every 8 hours As needed; 30 tablet. - Medication Reconciliation Form, Thank You Letter, Antibiotic Education, Prescription Opioid Use form. - Follow up: Private Physician; When: 2 - 3 days; Reason: Recheck today's complaints, Continuance of care, Re-evaluation by your physician. Follow up: Tito Paz; When: 2 - 3 days; Reason: Recheck today's complaints, Re-evaluation by your physician. - Problem is new. - Symptoms have improved. Signatures: Dispatcher [employer] Carlos Nye MD MD cha Munoz, Edgar, APPLICATION DEFENSE MANAGER APPLICATION DEFENSE MANAGER em Junie Young RN RN ss Corrections: (The following items were deleted from the chart) 12:19 11:53 12/30/2018 11:53 Discharged to Home. Impression: Headache; Obesity, unspecified; em Radiculopathy; Radiculopathy, cervical region; Adverse effect of amphetamines. Condition is Stable. Discharge Instructions: Cervical Radiculopathy, General Headache Without Cause, Obesity, Adult, Aspirin and Your Heart, General Headache Without Cause, Tkhe-og-Pxxl, Cervical Radiculopathy, Snpd-yg-Vsda, Obesity, Adult, Xavy-tl-Oofm, Radicular Pain. Prescriptions for Vitamin 27-0.8 mg Oral Tablet - take 1 tablet by ORAL route once daily; 30 tablet. and Forms are Medication Reconciliation Form, Thank You Letter, Antibiotic Education, Prescription Opioid Use. Follow up: Private Physician; When: 2 - 3 days; Reason: Recheck today's complaints, Continuance of care, Re-evaluation by your physician. Follow up: Tito Paz; When: 2 - 3 days; Reason: Recheck today's complaints, Re-evaluation by your physician. Problem is new. Symptoms have improved. mera
[2018-12-30 12:29] VITALS: TEMP 99
[2018-12-30 12:31] VITALS: BP 107/57; O2SAT 95
--- NOTE | 2018-12-31 06:14 | EKG ---
Test Date: 2018-12-30 Test Time: 10:32:09 Membership Sales Manager: JACIEL MEASUREMENT RESULTS: Intervals: Rate: 82 IL: 114 QRSD: 90 QT: 360 QTc: 420 [place]: P: 16 IL: 114 QRS: 44 T: 14 INTERPRETIVE STATEMENTS: Normal sinus rhythm normal ECG Compared to ECG 08/30/2017 20:27:31 No significant changes Electronically Signed On 12-31-18 06:14:11 CDT by Reece Lombardo
== END 2018-12-30 12:19 | disposition home or self-care (01) ==
LOC: ER 09:29
DX: M54.12 Radiculopathy, cervical region (principal); T43.625A Adverse effect of amphetamines, initial encounter; E66.9 Obesity, unspecified; F17.210 Nicotine dependence, cigarettes, uncomplicated
CPT/HCPCS: 36415; 70450; 71045; 72125; 80048; 80076; 80307; 81003; 81025; 83735; 83880; 84484; 85025; 85610; 93005; 96365; 96366; 99284; J7030

== ENCOUNTER 2019-08-22 21:55 | Emergency (ER) | payer SELFPAY ==
--- OUTSIDE RECORDS SUMMARY | 2019-08-22 21:57 | XMS REPORT ---
:1990 Author Organization [facility] t Address [address] [place] [address] Care Team Providers Name Role Phone Unavailable Unavailable Unavailable Problems This patient has no known problems. Allergies, Adverse Reactions, Alerts This patient has no known allergies or adverse reactions. Medications This patient has no known medications. Procedures This patient has no known procedures. Results This patient has no known results.
[2019-08-22] MEDS ORDERED: NA CHLORIDE 0.9% 1,000 ML ONE (22:57)
[2019-08-22 23:11] LABS: Absolute Lymphocytes (CBC) 3.6 K/uL (0.7-4.9); Basophils % 1.2 % (0-1.3); Lymphocytes % 26.4 % (15.3-44.8); MPV 9.1 fL (7.6-11.3); RBC Red Blood Cell Count 4.68 M/uL (3.86-4.86)
[2019-08-22 23:27] LABS: ALT/SGPT 46 U/L (12-78); AST/SGOT 24 U/L (15-37); Albumin 3.2 g/dL (3.4-5.0); Alkaline Phosphatase 67 U/L (45-117); BUN Blood Urea Nitrogen 13 mg/dL (7-18); Bicarbonate 25 mmol/L (21-32); Bilirubin Direct < 0.1 mg/dL (0-0.2); Bilirubin Total 0.1 mg/dL (0.2-1.0); Glucose Level 137 mg/dL (74-106); Lipase 98 U/L (73-393); Magnesium 2.3 mg/dL (1.8-2.4); NT PRO-BNP 26 pg/mL (<125); Potassium 3.8 mmol/L (3.5-5.1); Sodium Level 142 mmol/L (136-145); Troponin (Emerg Dept Use Only) < 0.02 ng/mL (0.0-0.045)
[2019-08-22 23:59] LABS: Urine Blood NEGATIVE (NEG); Urine Glucose NEGATIVE (NEG); Urine Protein 1+ (NEG); Urine Specific Gravity >1.030 (1.005-1.030); Urine pH 6.5 (5.0-7.0)
[2019-08-23] MEDS ORDERED: ASPIRIN 81 MG CHEWABLE TABLET ONE (02:01)
--- NOTE | 2019-08-23 02:36 | ER ---
Nurse's Notes [facility] Name: Delia Salgado Age: 29 yrs Sex: Female : 1990 Arrival Date: 08/22/2019 Time: 21:59 Bed 6 Private MD: Diagnosis: Chest pain, unspecified;Obesity, unspecified;Edema, unspecified;Essential (primary) hypertension Presentation: 08/21 22:08 Chief complaint: Patient states: Chestpain today, reports nausea with mild shortness of sg breath, denies fever/chills at home. Coronavirus screen: Proceed with normal triage. Ebola Screen: Patient negative for fever greater than or equal to 101.5 degrees Fahrenheit, and additional compatible Ebola Virus Disease symptoms Patient denies exposure to infectious person. Patient denies travel to an Ebola-affected area in the 21 days before illness onset. No symptoms or risks identified at this time. Initial Sepsis Screen: Does the patient meet any 2 criteria? No. Patient's initial sepsis screen is negative. Does the patient have a suspected source of infection? No. Patient's initial sepsis screen is negative. Risk Assessment: Do you want to hurt yourself or someone else? Patient reports no desire to harm self or others. Onset of symptoms was August 22, 2019. Care prior to arrival: None. Transition of care: patient was not received from another setting of care. 22:08 Method Of Arrival: Ambulatory sg 22:08 Acuity: GAR[facility] 3 sg [facility]: 23:19 LMP N/A - control method mg2 Historical: - Allergies: 22:09 No Known Allergies; sg - PMHx: 22:09 Sleep Apnea; sg - PSHx: 22:09 ; sg - Immunization history:: Adult Immunizations up to date. - Social history:: Smoking status: Patient denies any tobacco usage or history of. - Family history:: not pertinent. Screenin:19 Abuse screen: Denies threats or abuse. Denies injuries from another. Nutritional mg2 screening: No deficits noted. Tuberculosis screening: No symptoms or risk factors identified. Fall Risk IV access (20 points). Assessment: 23:18 General: Appears in no apparent distress. comfortable, Behavior is calm, cooperative. mg2 Pain: Complains of pain in chest Pain does not radiate. Pain began gradually, Is intermittent. Neuro: Level of Consciousness is awake, alert, obeys commands. Cardiovascular: Capillary refill < 3 seconds Patient's skin is warm and dry. Cardiovascular: Reports chest pain. Respiratory: Airway is patent Respiratory effort is even, unlabored, Respiratory pattern is regular, symmetrical. GI: No signs and/or symptoms were reported involving the gastrointestinal system. : No signs and/or symptoms were reported regarding the genitourinary system. EENT: No signs and/or symptoms were reported regarding the EENT system. Derm: Skin is intact, is healthy with good turgor, Skin is pink, warm \T\ dry. normal. Musculoskeletal: Circulation, motion, and sensation intact. Capillary refill < 3 seconds, Swelling present in right foot. 08/22 00:08 Reassessment: Patient appears in no apparent distress at this time. Patient and/or mg2 family updated on plan of care and expected duration. Pain level reassessed. Patient is alert, oriented x 3, equal unlabored respirations, skin warm/dry/pink. 00:38 Reassessment: patient sent to ct scan via wheelchair. mg2 01:50 Reassessment: Patient appears in no apparent distress at this time. Patient and/or jb4 family updated on plan of care and expected duration. Pain level reassessed. Patient is alert, oriented x 3, equal unlabored respirations, skin warm/dry/pink. PT reports increased pain under her left breast. Provider notified. Further orders pending providers assessment. Vital Signs: 08/21 22:34 BP 101 / 61; Pulse 96; Resp 18; Temp 98.6(TE); Pulse Ox 98% on R/A; ar5 08/22 00:39 BP 137 / 82; Pulse 80; Resp 18; Pulse Ox 97% on R/A; mg2 01:54 BP 130 / 106; Pulse 90; Resp 18; Temp 98.5; Pulse Ox 98% on R/A; mg2 ED Course: 08/21 21:59 Patient arrived in ED. cl3 22:02 Carlos Mitchell MD is Attending Physician. mera 22:09 Triage completed. sg 22:09 Arm band placed on. sg 22:14 Trever Garcia, JOANNE is Primary Nurse. jb4 22:53 No provider procedures requiring assistance completed. Inserted saline lock: 20 gauge mg2 in left antecubital area, using aseptic technique. Blood collected. Patient maintains SpO2 saturation greater than 95% on room air. 23:19 Patient has correct armband on for positive identification. security monitor on. Pulse mg2 ox on. NIBP on. Door closed. Warm blanket given. 23:24 XRAY Chest (1 view) In Process Unspecified. EDMS 08/22 01:01 CT Aorta for Dissection In Process Unspecified. EDMS 02:35 Daryn Hendricks MD is Referral Physician. mera 02:50 IV discontinued, intact, bleeding controlled, No redness/swelling at site. Pressure mg2 dressing applied. Administered Medications: 08/21 23:05 Drug: NS 0.9% 1000 ml Route: IV; Rate: 75 ml/hr; Site: left antecubital; jb4 08/22 02:49 Follow up: Response: No adverse reaction; IV Status: Order to discontinue infusion; IV mg2 Intake: 200ml 01:54 Drug: Aspirin 162 mg Route: PO; mg2 02:32 Follow up: Response: No adverse reaction mg2 02:49 Drug: Lopressor (metoprolol TARTRATE) 50 mg Route: PO; mg2 02:49 Follow up: Response: No adverse reaction; Medication administered at discharge. mg2 Intake: 02:49 IV: 200ml; Total: 200ml. mg2 Outcome: 02:35 Discharge ordered by . mera 02:50 Discharged to home ambulatory. mg2 02:50 Condition: stable 02:50 Discharge instructions given to patient, Instructed on discharge instructions, follow up and referral plans. medication usage, Demonstrated understanding of instructions, follow-up care, medications, Prescriptions given X 2. 02:52 Patient left the ED. sg Signatures: Dispatcher [employer] EDAZ Chuck Avery RN RN sg Anderson, Corey, MD MD cha Bryson, James, RN RN jb4 Terry Kong RN RN mg2 Toña Harris Charde cl3 Corrections: (The following items were deleted from the chart) 08/21 23:33 23:18 Musculoskeletal: Circulation, motion, and sensation intact. Capillary refill < 3 mg2 seconds, mg2
--- NOTE | 2019-08-23 02:37 | EDPHYS ---
Physician Documentation [facility] Name: Delia Salgado Age: 29 yrs Sex: Female : 1990 Arrival Date: 08/22/2019 Time: 21:59 Bed 6 Private MD: JUAN RAMON Physician Carlos Mitchell HPI: 08/21 22:26 This 29 yrs old Female presents to ER via Ambulatory with complaints of Chest mera Pain. 22:26 The patient or guardian reports chest pain that is located primarily in the anterior mera chest wall, bilaterally. The pain does not radiate. Associated signs and symptoms: Pertinent positives: shortness of breath. The chest pain is described as sharp. Duration: The patient or guardian reports multiple episodes, with no pattern. Modifying factors: The symptoms are alleviated by nothing. the symptoms are aggravated by nothing. movement. Severity of pain: At its worst the pain was mild moderate in the emergency department the pain has improved moderately. The patient has experienced similar episodes in the past, a few times. 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 - Social history:: Smoking status: Patient denies any tobacco usage or history of. - Family history:: not pertinent. ROS: 22:26 Constitutional: Negative for fever, chills, and weight loss, Eyes: Negative for injury, mera pain, redness, and discharge, ENT: Negative for injury, pain, and discharge, Neck: Negative for injury, pain, and swelling, Back: Negative for injury and pain, : Negative for injury, bleeding, discharge, and swelling, Skin: Negative for injury, rash, and discoloration, Neuro: Negative for headache, weakness, numbness, tingling, and seizure, Psych: Negative for depression, anxiety, suicide ideation, homicidal ideation, and hallucinations, Allergy/Immunology: Negative for hives, rash, and allergies, Endocrine: Negative for neck swelling, polydipsia, polyuria, polyphagia, and marked weight changes, Hematologic/Lymphatic: Negative for swollen nodes, abnormal bleeding, and unusual bruising. 22:26 Cardiovascular: Positive for chest pain. 22:26 Respiratory: Positive for shortness of breath. 22:26 Abdomen/GI: Positive for abdominal distension. 22:26 : Positive for missed period , months. 22:26 MS/extremity: Positive for swelling, of the right leg and left leg. Exam: 22:26 Constitutional: This is a well developed, well nourished patient who is awake, alert, mera and in no acute distress. Head/Face: Normocephalic, atraumatic. Eyes: Pupils equal round and reactive to light, extra-ocular motions intact. Lids and lashes normal. Conjunctiva and sclera are non-icteric and not injected. Cornea within normal limits. Periorbital areas with no swelling, redness, or edema. ENT: Nares patent. No nasal discharge, no septal abnormalities noted. Tympanic membranes are normal and external auditory canals are clear. Oropharynx with no redness, swelling, or masses, exudates, or evidence of obstruction, uvula midline. Mucous membranes moist. Neck: Trachea midline, no thyromegaly or masses palpated, and no cervical lymphadenopathy. Supple, full range of motion without nuchal rigidity, or vertebral point tenderness. No Meningismus. Chest/axilla: Normal chest wall appearance and motion. Nontender with no deformity. No lesions are appreciated. Cardiovascular: Regular rate and rhythm with a normal S1 and S2. No gallops, murmurs, or rubs. Normal PMI, no JVD. No pulse deficits. Back: No spinal tenderness. No costovertebral tenderness. Full range of motion. Skin: Warm, dry with normal turgor. Normal color with no rashes, no lesions, and no evidence of cellulitis. Neuro: Awake and alert, GCS 15, oriented to person, place, time, and situation. Cranial nerves II-XII grossly intact. Motor strength 5/5 in all extremities. Sensory grossly intact. Cerebellar exam normal. Normal gait. Psych: Awake, alert, with orientation to person, place and time. Behavior, mood, and affect are within normal limits. 22:26 Respiratory: the patient does not display signs of respiratory distress, Breath sounds: are clear throughout. 22:26 Abdomen/GI: Inspection: distension, Bowel sounds: normal, Palpation: abdomen is soft and non-tender, Liver: no appreciated palpable abnormalities, Hernia: not appreciated. 22:26 Musculoskeletal/extremity: Extremities: all appear grossly normal, with no appreciated pain with palpation, noted in the right leg and left leg: swelling, ROM: no acute changes, intact in all extremities, Circulation is intact in all extremities. Sensation intact. DVT Exam: no pain, no tenderness, negative Homans' sign noted on exam, no appreciated bluish discoloration, no erythema, no increased warmth, swelling. 22:45 ECG was reviewed by the Attending Physician. [facility] 08/22 02:21 ECG was reviewed by the Attending Physician. mera Vital Signs: 08/21 22:34 BP 101 / 61; Pulse 96; Resp 18; Temp 98.6(TE); Pulse Ox 98% on R/A; ar5 08/22 00:39 BP 137 / 82; Pulse 80; Resp 18; Pulse Ox 97% on R/A; mg2 01:54 BP 130 / 106; Pulse 90; Resp 18; Temp 98.5; Pulse Ox 98% on R/A; mg2 MDM: 08/21 22:21 Patient medically screened. mera 22:31 Differential diagnosis: abnormal EKG, anxiety, coronary artery disease chest wall pain, mera congestive heart failure cholecystitis, Cholelithiasis hiatal hernia, pneumonia, pulmonary embolus, unstable angina, . HEART Score: History: Slightly Suspicious (0), ECG: Normal (0), Age: < or = 45 years (0), Risk Factors: 1 or 2 risk factors (1), [+ Family HX] [Obesity]. The patient's deep vein thrombosis risk score was calculated as follows: Total Score: 0. This patient was found to be at low risk for a deep vein thrombosis by using the Well's assessment criteria. WILLIAM Risk Score: TOTAL SCORE = 0. Data reviewed: vital signs, nurses notes, lab test result(s), EKG, radiologic studies. Data interpreted: monitoring specialist: rate is 80 beats/min, rhythm is normal sinus rhythm, Pulse oximetry: on room air is 99 %. Test interpretation: by ED physician or midlevel provider: ECG, plain radiologic studies. 22:46 The patient's pulmonary embolism risk score was calculated as follows: Total Score: 0-2 mera points. This patient was found to be at low risk for a pulmonary embolism by using the Well's assessment criteria. 23:48 ED course: no trauma, no stasis, no hc state, no hx dvt, pe. 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 ED course: bp remains high, weight loss discussed. 08/21 22:25 Order name: Basic Metabolic Panel; Complete Time: 23:45 [facility] 08/21 22:25 Order name: CBC with Diff; Complete Time: 23:17 [facility] 08/21 22:25 Order name: LFT's; Complete Time: 23:45 [facility] 08/21 22:25 Order name: Magnesium; Complete Time: 23:45 [facility] 08/21 22:25 Order name: NT PRO-BNP; Complete Time: 23:45 [facility] 08/21 22:25 Order name: Troponin (emerg Dept Use Only); Complete Time: 23:45 [facility] 08/21 22:25 Order name: XRAY Chest (1 view) [facility] 08/21 22:25 Order name: Lipase; Complete Time: 23:45 [facility] 08/21 23:17 Order name: CT Aorta for Dissection [facility] 08/21 23:23 Order name: Urine Dipstick--Ancillary (enter results); Complete Time: 00:40 mw2 08/21 23:23 Order name: Urine --Ancillary (enter results); Complete Time: 00:40 mw2 08/22 01:55 Order name: Troponin (emerg Dept Use Only); Complete Time: 02:35 [facility] 08/21 22:25 Order name: EKG; Complete Time: 22:26 [facility] 08/21 22:25 Order name: Cardiac monitoring; Complete Time: 22:52 [facility] 08/21 22:25 Order name: EKG - Nurse/Tech; Complete Time: 22:36 [facility] 08/21 22:25 Order name: IV Saline Lock; Complete Time: 22:52 [facility] 08/21 22:25 Order name: Labs collected and sent; Complete Time: 22:52 [facility] 08/21 22:25 Order name: O2 Per Protocol; Complete Time: 22:52 [facility] 08/21 22:25 Order name: O2 Sat Monitoring; Complete Time: 22:52 [facility] 08/21 22:25 Order name: Urine Dipstick-Ancillary (obtain specimen); Complete Time: 23:17 [facility] 08/21 22:25 Order name: Urine Test (obtain specimen); Complete Time: 23:17 [facility] 08/22 01:52 Order name: EKG; Complete Time: 01:53 [facility] 08/22 01:52 Order name: EKG - Nurse/Tech; Complete Time: 02:02 [facility] EC/21 22:45 Rate is 98 beats/min. Rhythm is regular. QRS [place] is Normal. GA interval is shortened mera at 110 msec. QRS interval is normal. QT interval is normal. No Q waves. T waves are Normal. No ST changes noted. Clinical impression: Normal ECG and No evidence of ischemia. Interpreted by me. Reviewed by me. 08/22 02:21 Rate is 86 beats/min. Rhythm is regular. QRS [place] is Normal. GA interval is shortened. [facility] QRS interval is normal. QT interval is normal. No Q waves. T waves are Normal. No ST changes noted. Clinical impression: Normal ECG and No evidence of ischemia. Interpreted by me. Reviewed by me. Administered Medications: 08/21 23:05 Drug: NS 0.9% 1000 ml Route: IV; Rate: 75 ml/hr; Site: left antecubital; jb4 08/22 02:49 Follow up: Response: No adverse reaction; IV Status: Order to discontinue infusion; IV mg2 Intake: 200ml 01:54 Drug: Aspirin 162 mg Route: PO; mg2 02:32 Follow up: Response: No adverse reaction mg2 02:49 Drug: Lopressor (metoprolol TARTRATE) 50 mg Route: PO; mg2 02:49 Follow up: Response: No adverse reaction; Medication administered at discharge. mg2 Disposition: 08/23/19 02:35 Discharged to Home. Impression: Chest pain, unspecified, Obesity, unspecified, Edema, unspecified, Essential (primary) hypertension. - Condition is Stable. - Discharge Instructions: Nonspecific Chest Pain, Edema, Hypertension, Obesity, Adult, Nonspecific Chest Pain, Ukqr-bc-Zoqw, Hypertension, Qdhs-mj-Yjlg, Edema, Epby-rj-Hjwl, How to Take Your Blood Pressure, Orlu-sq-Zdyd, Aspirin and Your Heart, Managing Your Hypertension, Peripheral Edema. - Prescriptions for Pepcid 20 mg Oral Tablet - take 1 tablet by ORAL route every 12 hours for 10 days; 20 tablet. Toprol XL 25 mg Oral Tablet - take 1 tablet by ORAL route once daily; 20 tablet. - Medication Reconciliation Form, Thank You Letter, Antibiotic Education, Prescription Opioid Use form. - Follow up: Private Physician; When: 2 - 3 days; Reason: Recheck today's complaints, Continuance of care, Re-evaluation by your physician. Follow up: Daryn Hendricks; When: 2 - 3 days; Reason: Recheck today's complaints, Re-evaluation by your physician. - Problem is new. - Symptoms have improved. Signatures: Dispatcher [employer] EDChuck Flores RN RN Carlos Ryan MD MD cha Bryson, James RN RN jb4 Terry Kong RN RN mg2 Corrections: (The following items were deleted from the chart) 02:52 02:35 08/23/2019 02:35 Discharged to Home. Impression: Chest pain, unspecified; sg Obesity, unspecified; Edema, unspecified; Essential (primary) hypertension. Condition is Stable. Discharge Instructions: Nonspecific Chest Pain, Edema, Obesity, Adult, Nonspecific Chest Pain, Mgwr-ct-Aaco, Edema, Egwd-fj-Ydly, Aspirin and Your Heart, Peripheral Edema, Hypertension, Hypertension, Hizq-ez-Wtvu, How to Take Your Blood Pressure, Rtiq-wr-Ivwt, Managing Your Hypertension. Prescriptions for Pepcid 20 mg Oral Tablet - take 1 tablet by ORAL route every 12 hours for 10 days; 20 tablet, Toprol XL 25 mg Oral Tablet - take 1 tablet by ORAL route once daily; 20 tablet. and Forms are Medication Reconciliation Form, Thank You Letter, Antibiotic Education, Prescription Opioid Use. Follow up: Private Physician; When: 2 - 3 days; Reason: Recheck today's complaints, Continuance of care, Re-evaluation by your physician. Follow up: Daryn Hendricks; When: 2 - 3 days; Reason: Recheck today's complaints, Re-evaluation by your physician. Problem is new. Symptoms have improved. mera
[2019-08-23] MEDS ORDERED: METOPROLOL TAR 50 MG TAB ONE (02:45)
[2019-08-23 03:04] VITALS: BP 130/106; TEMP 98.5; O2SAT 98
--- NOTE | 2019-08-23 06:24 | EKG ---
Test Date: 2019-08-22 Test Time: 22:15:43 Collar Stitcher: URI MEASUREMENT RESULTS: Intervals: Rate: 98 SD: 110 QRSD: 88 QT: 358 QTc: 457 [place]: P: 12 SD: 110 QRS: 30 T: 11 INTERPRETIVE STATEMENTS: Sinus rhythm with short SD Otherwise normal ECG Compared to ECG 12/30/2018 10:32:09 Short SD interval now present Electronically Signed On 08-23-19 06:23:52 CDT by Daryn Hendricks
--- NOTE | 2019-08-23 06:24 | EKG ---
Test Date: 2019-08-23 Test Time: 02:02:15 Requirements Manager: URI MEASUREMENT RESULTS: Intervals: Rate: 86 NE: 110 QRSD: 84 QT: 370 QTc: 442 [place]: P: 16 NE: 110 QRS: 34 T: 8 INTERPRETIVE STATEMENTS: Sinus rhythm with short NE Otherwise normal ECG Compared to ECG 08/22/2019 22:15:43 No significant changes Electronically Signed On 08-23-19 06:23:51 CDT by Daryn Hendricks
--- NOTE | 2019-08-23 08:27 | RAD REPORT ---
EXAM DESCRIPTION: Lui Single View08/22/2019 11:23 pm CLINICAL HISTORY: Chest pain COMPARISON: 2018 FINDINGS: The lungs appear clear of acute infiltrate. The heart is normal size IMPRESSION: No acute abnormalities displayed
--- NOTE | 2019-08-24 11:04 | RAD REPORT ---
EXAM DESCRIPTION: CT - Angio Aorta For Dissection - 08/23/2019 5:33 am CLINICAL HISTORY: The patient is 29 years old and is Female; Abdominal distention;Dyspnea;Dissection TECHNIQUE: Axial computed tomographic angiography images of the chest, abdomen and pelvis with intra venous contrast. Sagittal and coronal reformatted images were created and reviewed. This CT exam was performed using one or more of the following dose reduction techniques: automated exposure cont rol, adjustment of the mA and/or kV according to patient size, and/or use of iterative reconstruction technique. MIP reconstructed images were created and reviewed. COMPARISON: No relevant prior studies available. FINDINGS: VASCULATURE: AORTA: No acute findings. No aortic aneurysm. No dissection. PULMONARY ARTERIES: Unremarkable as visualized. No pulmonary embolism is identified. GREAT VESSELS OF AORTIC ARCH: No acute findings. No dissection. No arterial occlusion or sig nificant stenosis. CELIAC TRUNK AND MESENTERIC ARTERIES: No acute findings. No occlusion or significant stenosis. RENAL ARTERIES: No acute findings. No occlusion or significant stenosis. ILIAC ARTERIES: No acute findings. No occlusion or significant stenosis. CHEST: LUNGS: Unremarkable. No mass. No consolidation. PLEURAL SPACE: Unremarkable. No significant effusion. No pneumothorax. HEART: Unremarkable. No cardiomegaly. No significant pericardial effusion. ABDOMEN: LIVER: The liver is enlarged and diffusely fatty. GALLBLADDER AND BILE DUCTS: Unremarkable. No calcified stones. No ductal dilation. PANCREAS: Unremarkable. No ductal dilation. No mass. SPLEEN: Unremarkable. No splenomegaly. ADRENALS: Unremarkable. No mass. KIDNEYS AND URETERS: Bilateral renal cysts are present, the largest measures approximately 1 cm. No follow-up imaging is recommended. The kidneys enhance symmetrically. No obstructing renal or urete ral calculus is seen. No hydronephrosis. No solid mass. STOMACH AND BOWEL: The stomach is minimally distended with food contents. The small bowel is nor mal in caliber. A moderate amount stool is present throughout colon. There is no mucosal thickening o r evidence of bowel obstruction. PELVIS: APPENDIX: The appendix is normal in caliber without surrounding inflammation. BLADDER: The bladder is moderately distended. REPRODUCTIVE: A 3.1 cm left ovarian cyst is present. The uterus and right ovary are normal. A s mall 1.5 cm left ovarian corpus luteum cyst is present. No follow-up imaging is recommended. CHEST, ABDOMEN and PELVIS: INTRAPERITONEAL SPACE: Unremarkable. No significant fluid collection. No free air. BONES/JOINTS: No acute fracture. No dislocation. SOFT TISSUES: Unremarkable. LYMPH NODES: Unremarkable. No enlarged lymph nodes. IMPRESSION: 1. No evidence of aortic aneurysm or dissection. 2. No acute findings on this CTA of the chest, abdomen, and pelvis to explain the patient's symptom s. Electronically signed by: Emani Brown MD 08/23/2019 1:26 AM CDT Due to temporary technical issues with the PACS/Fluency reporting system, reports are being signed by the in house radiologist as a courtesy to ensure prompt reporting. The interpreting radiologist is f ully responsible for the content of the report.
== END 2019-08-23 02:52 | disposition home or self-care (01) ==
LOC: ER 21:55
DX: I10 Essential (primary) hypertension (principal); E66.9 Obesity, unspecified; R60.9 Edema, unspecified
CPT/HCPCS: 36415; 71045; 71275; 74175; 80048; 80076; 81003; 81025; 83690; 83735; 83880; 84484; 85025; 93005; 96360; 96361; 99285; J7030; Q9967

== ENCOUNTER 2019-12-28 08:39 | Emergency (ER) | payer SELFPAY, OTHER ==
--- OUTSIDE RECORDS SUMMARY | 2019-12-28 08:41 | XMS REPORT | Continuity of Care Document ---
:1990 Author Organization [facility] t Address [address] [place] [address] Care Team Providers Name Role Phone Solis Savage MD Attending Clinician Doctor Unassigned, Name Attending Clinician Unavailable Problems This patient has no known problems. Allergies, Adverse Reactions, Alerts This patient has no known allergies or adverse reactions. Medications This patient has no known medications. Procedures This patient has no known procedures. Encounters Start End Encounter Admission Attending Care Care Encounter Source Date/Time Date/Time Type Type Clinicians Facility Department ID 2019-09-22 2019-09-23 Emergency [facility] [id number] 22:22:27 00:07:00 Kaiden Silva [id number] [place] [id number] [place] [id number] 2019-09-22 2019-09-22 Orders Doctor BURT [id number] 00:00:00 00:00:00 Only UnassignedJADIEL [id number] [place] [facility] [id number] Results This patient has no known results.
[2019-12-28] MEDS ORDERED: RSI MEDICATION KIT IV ONE (08:58)
--- NOTE | 2019-12-28 10:13 | RAD REPORT ---
EXAM DESCRIPTION: Lui Single View12/28/2019 9:40 am CLINICAL HISTORY: cough COMPARISON: August 2019 FINDINGS: The lungs appear clear of acute infiltrate. The heart is normal size IMPRESSION: No acute abnormalities displayed
--- NOTE | 2019-12-28 12:45 | ER ---
Nurse's Notes [facility] Name: Delia Salgado Age: 29 yrs Sex: Female : 1990 Arrival Date: 12/28/2019 Time: 08:46 Bed 14 Private MD: Diagnosis: Vomiting;Diarrhea, unspecified;Acute upper respiratory infection, unspecified Presentation: 12/27 08:50 Chief complaint: Patient states: NAUSEA, VOMITING, SOB, MALAISE x2 DAYS. Coronavirus bp screen: At this time, the client does not indicate any symptoms associated with coronavirus-19. Ebola Screen: No symptoms or risks identified at this time. Initial Sepsis Screen: Does the patient meet any 2 criteria? No. Patient's initial sepsis screen is negative. Does the patient have a suspected source of infection? No. Patient's initial sepsis screen is negative. Risk Assessment: Do you want to hurt yourself or someone else? Patient reports no desire to harm self or others. Onset of symptoms is unknown. 08:50 Method Of Arrival: Ambulatory bp 08:50 Acuity: GARETH 3 bp Triage Assessment: 08:50 General: Appears distressed, uncomfortable, ill, obese, Behavior is cooperative, bp appropriate for age, anxious. Pain: Complains of pain in head. EENT: Reports nasal congestion. Neuro: No deficits noted. Cardiovascular: No deficits noted. Respiratory: Breath sounds are coarse bilaterally. Breath sounds with crackles. GI: Reports nausea, vomiting. : No signs and/or symptoms were reported regarding the genitourinary system. Derm: No deficits noted. Musculoskeletal: No deficits noted. Historical: - Allergies: 09:11 No Known Allergies; bp - Home Meds: 09:11 None [Active]; bp - PMHx: 09:11 Sleep Apnea; bp - PSHx: 09:11 Tubal ligation; bp - Immunization history:: Adult Immunizations up to date. - Social history:: Smoking status: Patient reports the use of cigarette tobacco products, unknown amount. Screenin:13 Abuse screen: Denies threats or abuse. Denies injuries from another. Nutritional bp screening: No deficits noted. Tuberculosis screening: No symptoms or risk factors identified. Fall Risk None identified. Assessment: 09:12 General: SEE TRIAGE NOTE. GI: Abdomen is obese. bp 10:26 Reassessment: ALL CURRENT ORDERS COMPLETED, VS STABLE ON MONITOR. bp 11:20 Reassessment: FINAL RESULTS PENDING. PT NOTED TO DESAT WHILE SLEEPING, KNOWN H/O DEBRA. bp 12:46 Reassessment: PT D/C HOME AMBULATORY WITH FAMILY, DX WITH VIRAL URI. bp Vital Signs: 08:50 BP 111 / 58; Pulse 89; Resp 20; Temp 98; Pulse Ox 95% ; Weight 158.76 kg; Height 5 ft. bp 4 in. (162.56 cm); 10:25 BP 129 / 61; Pulse 75; Resp 20; Pulse Ox 95% ; bp 11:19 BP 99 / 58; Pulse 79; Resp 16; Pulse Ox 91% ; bp 12:46 BP 105 / 85; Pulse 82; Resp 16; Temp 98; Pulse Ox 94% ; bp 08:50 Body Mass Index 60.08 (158.76 kg, 162.56 cm) bp ED Course: 08:46 Patient arrived in ED. mr 08:51 Lupillo Marcum, JOANNE is Primary Nurse. bp 08:52 Bennie Hobbs NP is PHCP. pm1 08:52 Jaiden Monroe MD is Attending Physician. pm1 09:10 Triage completed. bp 09:12 Arm band placed on. bp 09:13 Patient has correct armband on for positive identification. Bed in low position. Call bp light in reach. Side rails up X2. 09:40 CXR XRAY In Process Unspecified. EDMS 12:47 No provider procedures requiring assistance completed. Patient did not have IV access bp during this emergency room visit. Administered Medications: 12:50 Drug: Decadron 10 mg Route: IM; Site: affected area; bp 12:56 Follow up: Response: Medication administered at discharge. bp Outcome: 12:45 Discharge ordered by . pm1 12:56 Discharged to home ambulatory, with family. bp 12:56 Condition: stable 12:56 Discharge instructions given to patient, Instructed on discharge instructions, follow up and referral plans. medication usage, Demonstrated understanding of instructions, follow-up care, medications, Prescriptions given X 3. 13:01 Patient left the ED. bp Addendum: 12/30/2019 11:48 Addendum: COVID-19 Result: Negative result given to RN to notify pt. Notified pt of s s negative COVID 19 swab results. Pt advised that even with a negative test result they should remain in isolation until symptom free for 3 days without medication. Pt also advised to return to the ED for worsening symptoms. Signatures: Dispatcher [employer] Loraine Ruiz Shelby, RN RN ss Bennie Hobbs, HARNESS REPAIRER HARNESS REPAIRER pm1 Lupillo Marcum RN RN bp
--- NOTE | 2019-12-28 12:45 | EDPHYS ---
Physician Documentation [facility] Name: Delia Salgado Age: 29 yrs Sex: Female : 1990 Arrival Date: 12/28/2019 Time: 08:46 Bed 14 Private MD: ED Physician Jaiden Monroe HPI: 12/27 09:16 This 29 yrs old Female presents to ER via Ambulatory with complaints of pm1 Vomiting/Diarrhea, Breathing Difficulty. 09:16 The patient presents to the emergency department with nausea, vomiting, 1 times since pm1 the onset of symptoms, 1 times today. Onset: The symptoms/episode began/occurred 3 day(s) ago. Possible causes: unknown. The symptoms are aggravated by nothing. The symptoms are alleviated by nothing. Associated signs and symptoms: Pertinent positives: Cough, shortness of breath, sore throat, Pertinent negatives: abdominal pain, fever, chest pain. Severity of symptoms: in the emergency department the symptoms are worse. The patient has not experienced similar symptoms in the past. The patient has not recently seen a physician. Historical: - Allergies: 09:11 No Known Allergies; bp - Home Meds: 09:11 None [Active]; bp - PMHx: 09:11 Sleep Apnea; bp - PSHx: 09:11 Tubal ligation; bp - Immunization history:: Adult Immunizations up to date. - Social history:: Smoking status: Patient reports the use of cigarette tobacco products, unknown amount. ROS: 09:16 Neck: Negative for injury, pain, and swelling, Cardiovascular: Negative for chest pain, pm1 palpitations, and edema. 09:16 Back: Negative for injury and pain, : Negative for injury, bleeding, discharge, and swelling, MS/Extremity: Negative for injury and deformity, Skin: Negative for injury, rash, and discoloration, Neuro: Negative for headache, weakness, numbness, tingling, and seizure. 09:16 Constitutional: Positive for body aches, malaise, Negative for fever, poor PO intake. 09:16 ENT: Positive for sore throat, Negative for ear pain. 09:16 Respiratory: Positive for cough, shortness of breath. 09:16 Abdomen/GI: Positive for nausea and vomiting, Negative for abdominal pain, diarrhea, constipation. Exam: 09:16 Constitutional: This is a well developed, well nourished patient who is awake, alert, pm1 and in no acute distress. Head/Face: Normocephalic, atraumatic. 09:16 Neck: Trachea midline, no thyromegaly or masses palpated, and no cervical lymphadenopathy. Supple, full range of motion without nuchal rigidity, or vertebral point tenderness. No Meningismus. Chest/axilla: Normal chest wall appearance and motion. Nontender with no deformity. No lesions are appreciated. 09:16 Back: No spinal tenderness. No costovertebral tenderness. Full range of motion. Skin: Warm, dry with normal turgor. Normal color with no rashes, no lesions, and no evidence of cellulitis. MS/ Extremity: Pulses equal, no cyanosis. Neurovascular intact. Full, normal range of motion. 09:16 Cardiovascular: Exam negative for acute changes, Rate: normal, Rhythm: regular, Pulses: no pulse deficits are appreciated, Edema: is not appreciated. 09:16 Respiratory: Exam negative for acute changes, respiratory distress, shortness of breath. 09:16 Abdomen/GI: Exam negative for acute changes, Inspection: obese Palpation: abdomen is soft and non-tender, in all quadrants. 09:16 Neuro: Exam negative for acute changes, Orientation: is normal, Mentation: is normal, Motor: is normal. Vital Signs: 08:50 BP 111 / 58; Pulse 89; Resp 20; Temp 98; Pulse Ox 95% ; Weight 158.76 kg; Height 5 ft. bp 4 in. (162.56 cm); 10:25 BP 129 / 61; Pulse 75; Resp 20; Pulse Ox 95% ; bp 11:19 BP 99 / 58; Pulse 79; Resp 16; Pulse Ox 91% ; bp 12:46 BP 105 / 85; Pulse 82; Resp 16; Temp 98; Pulse Ox 94% ; bp 08:50 Body Mass Index 60.08 (158.76 kg, 162.56 cm) bp MDM: 09:06 Patient medically screened. pm1 12:43 Data reviewed: vital signs. Data interpreted: Pulse oximetry: on room air is 95 %. pm1 Interpretation: normal. Counseling: I had a detailed discussion with the patient and/or guardian regarding: the historical points, exam findings, and any diagnostic results supporting the discharge/admit diagnosis, lab results, radiology results, the need for outpatient follow up, to return to the emergency department if symptoms worsen or persist or if there are any questions or concerns that arise at home. 12/27 09:08 Order name: COVID-19 pm1 12/27 09:08 Order name: Flu; Complete Time: 10:59 pm1 12/27 09:08 Order name: O2 Per Protocol; Complete Time: 09:14 pm1 12/27 09:08 Order name: CXR XRAY; Complete Time: 10:32 pm1 12/27 09:08 Order name: Strep pm1 12/27 09:08 Order name: Droplet/Contact Precautions; Complete Time: 09:43 pm1 12/27 09:08 Order name: Labs collected and sent; Complete Time: 09:43 pm1 Administered Medications: 12:50 Drug: Decadron 10 mg Route: IM; Site: affected area; bp 12:56 Follow up: Response: Medication administered at discharge. bp Disposition: 12/28 08:43 Co-signature as Attending Physician, Jaiden Monroe MD I agree with the assessment and kdr plan of care. Disposition: 12/28/19 12:45 Discharged to Home. Impression: Acute upper respiratory infection, unspecified, Vomiting, Diarrhea, unspecified. - Condition is Stable. - Discharge Instructions: Upper Respiratory Infection, Adult, Viral Gastroenteritis, Adult, COVID-19. - Prescriptions for Prednisone 20 mg Oral Tablet - take 1 tablet by ORAL route every 12 hours for 7 days; 14 tablet. Zofran ODT 4 mg Oral tablet,disintegrating - place 1 tablet by TRANSLINGUAL route every 8 hours As needed; 12 tablet. Albuterol Sulfate 90 mcg/actuation - inhale 1-2 puff by INHALATION route every 4-6 hours; 1 Inhaler. - Work release form, Medication Reconciliation Form, Thank You Letter, Antibiotic Education, Prescription Opioid Use form. - Follow up: Emergency Department; When: As needed; Reason: Worsening of condition. Follow up: Private Physician; When: 2 - 3 days; Reason: Recheck today's complaints, Continuance of care, Re-evaluation by your physician. - Problem is new. - Symptoms have improved. Signatures: Dispatcher [employer] EDJaiden Pablo MD MD kdr Marinas, Patrick, PLASTIC ROLLER PLASTIC ROLLER pm1 Lupillo Marcum, RN RN bp Corrections: (The following items were deleted from the chart) 12/27 13:01 12:45 12/28/2019 12:45 Discharged to Home. Impression: Acute upper respiratory bp infection, unspecifiedVomiting; Diarrhea, unspecified. Condition is Stable. Forms are Medication Reconciliation Form, Thank You Letter, Antibiotic Education, Prescription Opioid Use. Follow up: Emergency Department; When: As needed; Reason: Worsening of condition. Follow up: Private Physician; When: 2 - 3 days; Reason: Recheck today's complaints, Continuance of care, Re-evaluation by your physician. Problem is new. Symptoms have improved. pm1
[2019-12-28] MEDS ORDERED: dexAMETHasone 4 MG/ML VIAL ONE (13:01)
[2019-12-28 13:14] VITALS: TEMP 98
[2019-12-28 13:19] VITALS: BP 105/85; O2SAT 94
== END 2019-12-28 13:01 | disposition home or self-care (01) ==
LOC: ER 08:39
DX: J06.9 Acute upper respiratory infection, unspecified (principal); Z20.828 Contact with and (suspected) exposure to other viral communicable diseases; R19.7 Diarrhea, unspecified; Z72.0 Tobacco use
CPT/HCPCS: 71045; 87070; 87081; 87804; 96372; 99283; U0002

== ENCOUNTER 2020-01-02 08:12 | Emergency (ER) | payer OTHER, SELFPAY ==
[2020-01-02] MEDS ORDERED: ALBUTEROL 2.5 MG/3 ML NEB SOL ONE (08:48)
[2020-01-02] MEDS ORDERED: IPRATROPIUM BROM 0.5MG/2.5ML ONE (08:48)
[2020-01-02 09:04] LABS: Absolute Lymphocytes (CBC) 3.4 K/uL (0.7-4.9); Basophils % 1.3 % (0-1.3); Hematocrit 39.3 % (36.0-45.0); MPV 8.8 fL (7.6-11.3); RBC Red Blood Cell Count 4.61 M/uL (3.86-4.86)
[2020-01-02] MEDS ORDERED: ONDANSETRON 4 MG/2 ML VIAL ONE (09:24)
[2020-01-02 09:27] LABS: ALT/SGPT 32 U/L (12-78); AST/SGOT 9 U/L (15-37); Albumin 3.2 g/dL (3.4-5.0); Alkaline Phosphatase 70 U/L (45-117); BUN Blood Urea Nitrogen 13 mg/dL (7-18); Bicarbonate 29 mmol/L (21-32); Bilirubin Total 0.4 mg/dL (0.2-1.0); Glucose Level 136 mg/dL (74-106); Potassium 3.4 mmol/L (3.5-5.1); Protein, Total 6.7 g/dL (6.4-8.2); Sodium Level 141 mmol/L (136-145)
--- NOTE | 2020-01-02 10:47 | ER ---
Nurse's Notes [facility] Name: Delia Salgado Age: 29 yrs Sex: Female : 1990 Arrival Date: 01/02/2020 Time: 08:14 Bed 6 Private MD: Diagnosis: Sleep apnea;Sleep disorders;Obesity, unspecified;Cough Presentation: 01/01 08:29 Chief complaint: Patient states: has had congestion, hoarse cough, sore throat, iw vomiting, nausea X 3 days, was seen here four days ago for similar symptoms, was COVID negative. Coronavirus screen: The client reports previous COVID testing was negative. Ebola Screen: Patient negative for fever greater than or equal to 101.5 degrees Fahrenheit, and additional compatible Ebola Virus Disease symptoms Patient denies exposure to infectious person. Patient denies travel to an Ebola-affected area in the 21 days before illness onset. No symptoms or risks identified at this time. Initial Sepsis Screen: Does the patient meet any 2 criteria? No. Patient's initial sepsis screen is negative. Does the patient have a suspected source of infection? No. Patient's initial sepsis screen is negative. Risk Assessment: Do you want to hurt yourself or someone else? Patient reports no desire to harm self or others. Onset of symptoms was December 30, 2019. 08:29 Method Of Arrival: Ambulatory iw 08:29 Acuity: GARETH 3 iw Historical: - Allergies: 08:32 No Known Allergies; iw - PMHx: 08:32 Sleep Apnea; iw - PSHx: 08:32 Tubal ligation; ; iw - Immunization history:: Adult Immunizations. - Social history:: Smoking status: Patient reports the use of cigarette tobacco products, smokes 1.5 packs per day. Screenin:37 Abuse screen: Denies threats or abuse. Nutritional screening: No deficits noted. em Tuberculosis screening: No symptoms or risk factors identified. Fall Risk None identified. Assessment: 08:40 General: Appears in no apparent distress. uncomfortable, Behavior is calm, cooperative. em Pain: Denies pain. Neuro: Level of Consciousness is awake, alert, obeys commands, Oriented to person, place, time, situation, Appropriate for age. Cardiovascular: Capillary refill < 3 seconds Patient's skin is warm and dry. Respiratory: Reports cough that is non-productive, Airway is patent Respiratory effort is even, unlabored, Respiratory pattern is regular. GI: Abdomen is round obese, Reports nausea, vomiting. Derm: Skin is intact, is healthy with good turgor, Skin is pink, warm \T\ dry. Musculoskeletal: Capillary refill < 3 seconds, Range of motion: intact in all extremities. 09:10 Reassessment: reports nausea has not improved, Dr. Monroe notified, received new em medication orders. 10:00 Reassessment: Patient appears in no apparent distress at this time. Patient and/or em family updated on plan of care and expected duration. Pain level reassessed. Patient is alert, oriented x 3, equal unlabored respirations, skin warm/dry/pink. Vital Signs: 08:29 BP 115 / 73; Pulse 95; Resp 18 S; Temp 98.3; Pulse Ox 97% on R/A; Weight 142.88 kg; iw Height 5 ft. 4 in. (162.56 cm); Pain 0/10; 10:01 BP 125 / 56; Pulse 80; Pulse Ox 97% on R/A; ss 11:00 BP 124 / 61; Pulse 78; Resp 18; Pulse Ox 98% on R/A; em 08:29 Body Mass Index 54.07 (142.88 kg, 162.56 cm) iw ED Course: 08:14 Patient arrived in ED. mr 08:15 Patient has correct armband on for positive identification. Placed in gown. Bed in low em position. Call light in reach. Pulse ox on. NIBP on. 08:20 Jaiden Monroe MD is Attending Physician. kdr 08:25 Peter Crocker, JOANNE is Primary Nurse. em 08:31 Triage completed. iw 08:32 Arm band placed on. iw 11:10 No provider procedures requiring assistance completed. IV discontinued, intact, em bleeding controlled, No redness/swelling at site. Pressure dressing applied. 11:44 CXR XRAY In Process Unspecified. EDMS Administered Medications: 08:37 Drug: Albuterol - atroVENT (3:1) (2.5 mg - 0.5 mg) 3 ml Route: Nebulizer; em 09:15 Follow up: Response: No adverse reaction; Marked relief of symptoms em 09:14 Drug: Zofran (Ondansetron) 4 mg Route: IVP; Site: right antecubital; em 11:11 Follow up: Response: No adverse reaction; Marked relief of symptoms; Nausea is decreasedem Outcome: 10:46 Discharge ordered by . kdr 11:10 Discharged to home ambulatory. em 11:10 Condition: good 11:10 Discharge instructions given to patient, Instructed on discharge instructions, follow up and referral plans. medication usage, Demonstrated understanding of instructions, follow-up care, medications, Prescriptions given X 3. 11:15 Patient left the ED. iw Signatures: Dispatcher [employer] Jaiden Titus MD MD kdr Rivera, Mary Peter Crocker, RN RN Keri Smart RN RN iw Smirch, Shelby, RN RN ss
--- NOTE | 2020-01-02 10:47 | EDPHYS ---
Physician Documentation [facility] Name: Delia Salgado Age: 29 yrs Sex: Female : 1990 Arrival Date: 01/02/2020 Time: 08:14 Bed 6 Private MD: ED Physician Jaiden Monroe HPI: 01/01 08:33 This 29 yrs old Female presents to ER via Ambulatory with complaints of kdr Vomiting, Congestion, Cough. 08:33 The patient presents to the emergency department with nausea, vomiting, that is kdr intermittent. Onset: The symptoms/episode began/occurred gradually, 4 day(s) ago. Possible causes: unknown. The symptoms are aggravated by nothing. The symptoms are alleviated by nothing. Associated signs and symptoms: Pertinent positives:. 12:30 Severity of symptoms: At their worst the symptoms were mild in the emergency department kdr the symptoms are unchanged. The patient has experienced similar episodes in the past, a few times. The patient has not recently seen a physician. 12:31 The patient's primary complaint is sleep apnea and her CPAP machine is broken and she kdr is falling asleep while sitting up and driving. The patient has also had some nausea and vomiting though mos t fo it is post tussive vomiting. Historical: - Allergies: 08:32 No Known Allergies; iw - PMHx: 08:32 Sleep Apnea; iw - PSHx: 08:32 Tubal ligation; ; iw - Immunization history:: Adult Immunizations. - Social history:: Smoking status: Patient reports the use of cigarette tobacco products, smokes 1.5 packs per day. ROS: 12:31 Constitutional: Negative for fever, chills, and weight loss, Eyes: Negative for injury, kdr pain, redness, and discharge, ENT: Negative for injury, pain, and discharge, Neck: Negative for injury, pain, and swelling, Cardiovascular: Negative for chest pain, palpitations, and edema, Respiratory: Negative for shortness of breath, cough, wheezing, and pleuritic chest pain, Back: Negative for injury and pain, : Negative for injury, bleeding, discharge, and swelling, MS/Extremity: Negative for injury and deformity, Skin: Negative for injury, rash, and discoloration, Psych: Negative for depression, anxiety, suicide ideation, homicidal ideation, and hallucinations, Allergy/Immunology: Negative for hives, rash, and allergies, Endocrine: Negative for neck swelling, polydipsia, polyuria, polyphagia, and marked weight changes, Hematologic/Lymphatic: Negative for swollen nodes, abnormal bleeding, and unusual bruising. 12:31 Abdomen/GI: Positive for nausea and vomiting, Negative for abdominal pain, diarrhea, constipation, abdominal cramps, abdominal distension, anorexia, dysphagia, hematemesis, black/tarry stool, rectal pain, rectal bleeding, bowel incontinence. 12:31 Neuro: Positive for Sleep apnea. Exam: 12:31 Constitutional: This is a well developed, well nourished obese patient who is awake, kdr alert, and in no acute distress. Head/Face: Normocephalic, atraumatic. Eyes: Pupils equal round and reactive to light, extra-ocular motions intact. Lids and lashes normal. Conjunctiva and sclera are non-icteric and not injected. Cornea within normal limits. Periorbital areas with no swelling, redness, or edema. Neck: Trachea midline, no thyromegaly or masses palpated, and no cervical lymphadenopathy. Supple, full range of motion without nuchal rigidity, or vertebral point tenderness. No Meningismus. Chest/axilla: Normal chest wall appearance and motion. Nontender with no deformity. No lesions are appreciated. Cardiovascular: Regular rate and rhythm with a normal S1 and S2. No gallops, murmurs, or rubs. Normal PMI, no JVD. No pulse deficits. Respiratory: Lungs have equal breath sounds bilaterally, clear to auscultation and percussion. No rales, rhonchi or wheezes noted. No increased work of breathing, no retractions or nasal flaring. Back: No spinal tenderness. No costovertebral tenderness. Full range of motion. Skin: Warm, dry with normal turgor. Normal color with no rashes, no lesions, and no evidence of cellulitis. MS/ Extremity: Pulses equal, no cyanosis. Neurovascular intact. Full, normal range of motion. Neuro: Awake and alert, GCS 15, oriented to person, place, time, and situation. Cranial nerves II-XII grossly intact. Motor strength 5/5 in all extremities. Sensory grossly intact. Cerebellar exam normal. Normal gait. Psych: Awake, alert, with orientation to person, place and time. Behavior, mood, and affect are within normal limits. 12:31 Abdomen/GI: Inspection: abdomen appears normal, obese Bowel sounds: active, Palpation: soft, nontender. Vital Signs: 08:29 BP 115 / 73; Pulse 95; Resp 18 S; Temp 98.3; Pulse Ox 97% on R/A; Weight 142.88 kg; iw Height 5 ft. 4 in. (162.56 cm); Pain 0/10; 10:01 BP 125 / 56; Pulse 80; Pulse Ox 97% on R/A; ss 11:00 BP 124 / 61; Pulse 78; Resp 18; Pulse Ox 98% on R/A; em 08:29 Body Mass Index 54.07 (142.88 kg, 162.56 cm) iw MDM: 10:35 Data reviewed: vital signs, nurses notes. ED course: . kdr 10:46 Patient medically screened. kdr 01/01 08:32 Order name: CBC with Diff; Complete Time: 09:46 kdr 10 08:32 Order name: Comprehensive Metabolic Panel; Complete Time: 09:46 kdr 01/01 08:32 Order name: CXR XRAY kdr Administered Medications: 08:37 Drug: Albuterol - atroVENT (3:1) (2.5 mg - 0.5 mg) 3 ml Route: Nebulizer; em 09:15 Follow up: Response: No adverse reaction; Marked relief of symptoms em 09:14 Drug: Zofran (Ondansetron) 4 mg Route: IVP; Site: right antecubital; em 11:11 Follow up: Response: No adverse reaction; Marked relief of symptoms; Nausea is decreasedem Disposition: 01/02/20 10:46 Discharged to Home. Impression: Sleep apnea, Sleep disorders, Obesity, unspecified, Cough. - Condition is Stable. - Discharge Instructions: Sleep Studies, Cough, Adult, [id number], Obesity, Adult, Ebyc-[id number]. - Prescriptions for Tessalon Perles 100 mg Oral Capsule - take 1 capsule by ORAL route every 8 hours As needed; 15 capsule. Zofran 4 mg Oral Tablet - take 1 tablet by ORAL route every 4-6 hours As needed; 12 tablet. Guaifenesin AC 10- 100 mg/5 mL Oral Liquid - take 10 milliliter by ORAL route every 4 hours As needed; 240 milliliter. - Medication Reconciliation Form, Thank You Letter form. - Follow up: Private Physician; When: 2 - 3 days; Reason: If symptoms return, Further diagnostic work-up, Recheck today's complaints, Continuance of care, Re-evaluation by your physician. - Problem is an ongoing problem. - Symptoms are unchanged. Signatures: Dispatcher [employer] EDCT Jaiden Monroe MD MD kdr Peter Crocker RN RN em Keri Dave RN RN iw Corrections: (The following items were deleted from the chart) 11:15 10:46 01/02/2020 10:46 Discharged to Home. Impression: Sleep apnea; Sleep disorders; iw Obesity, unspecified; Cough. Condition is Stable. Forms are Medication Reconciliation Form, Thank You Letter, Antibiotic Education, Prescription Opioid Use. Follow up: Private Physician; When: 2 - 3 days; Reason: If symptoms return, Further diagnostic work-up, Recheck today's complaints, Continuance of care, Re-evaluation by your physician. Problem is an ongoing problem. Symptoms are unchanged. kdr
[2020-01-02 12:15] VITALS: BP 124/61; O2SAT 98
[2020-01-02 12:17] VITALS: TEMP 98.3
--- NOTE | 2020-01-03 08:31 | RAD REPORT ---
EXAM DESCRIPTION: RAD - Chest Single View - 01/02/2020 10:17 pm CLINICAL HISTORY: COUGH, shortness of breath COMPARISON: December 27 TECHNIQUE: AP portable chest image was obtained 01/02/2020 10:17 pm . FINDINGS: Lung volumes are relatively low and large body habitus further limits the examination. No focal mass or consolidation is identifiable. Heart and vasculature are normal. No measurable pleural effusion and no pneumothorax. No acute bony abnormality seen. No acute aortic findings suspected. 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 Image was reviewed at the time of the study. IMPRESSION: Limited portable study without acute cardiopulmonary finding. No significant change from December 27 study.
--- OUTSIDE RECORDS SUMMARY | 2020-01-08 14:19 | XMS REPORT | Continuity of Care Document ---
:1990 Author Organization [facility] t Address [address] [place] [address] Care Team Providers Name Role Phone Solis [...] Clinicians Facility Department ID 2019-09-22 2019-09-23 Emergency [facility] [id number] 22:22:27 00:07:00 Kaiden Silva [id number] [place] [id number] [place] [id number] 2019-09-22 2019-09-22 Orders Doctor BURT [id number] 00:00:00 00:00:00 Only UnassignedJADIEL [id number] [place] [facility] [id number] Results This patient has no known results.
== END 2020-01-02 11:15 | disposition home or self-care (01) ==
LOC: ER 08:12
DX: R05 Cough (principal); G47.30 Sleep apnea, unspecified; G47.9 Sleep disorder, unspecified; E66.9 Obesity, unspecified; F17.210 Nicotine dependence, cigarettes, uncomplicated
CPT/HCPCS: 36415; 71045; 80053; 85025; 96374; 99284; J2405

== ENCOUNTER 2020-04-15 09:52 | Emergency (ER) | payer SELFPAY ==
--- OUTSIDE RECORDS SUMMARY | 2020-04-15 10:03 | XMS REPORT | Continuity of Care Document ---
:1990 Author Organization [facility] t Address [address] [place] [address] Care Team Providers Name Role Phone Janette SOLANO S Attending Clinician Doctor Unassigned, Name Attending Clinician Unavailable Problems This patient has no known problems. Allergies, Adverse Reactions, Alerts This patient has no known allergies or adverse reactions. Medications This patient has no known medications. Procedures This patient has no known procedures. Encounters Start End Encounter Admission Attending Care Care Encounter Source Date/Time Date/Time Type Type Clinicians Facility Department ID 2020-01-10 2020-01-10 [facility] [id number] 19:12:00 21:36:00 Kaiden Silva [id number] [place] [id number] [place] [address] [id number] 2019-09-22 2019-09-23 Emergency [facility] [id number] 22:22:27 00:07:00 Kaiden Silva [id number] [place] [id number] [place] [address] [id number] 2019-09-22 2019-09-22 Orders Doctor BURT [id number] 00:00:00 00:00:00 Only UnassignedJADIEL [id number] Miguel Barrera [facility] [id number] Results This patient has no known results.
[2020-04-15 10:24] LABS: Arterial Blood Carboxyhemoglob 3.5 % (0-1.5); Blood Gas Oxyhemoglobin 92.2 % (94-97); Blood O2 Saturation 96.3 % (92-98.5)
--- NOTE | 2020-04-15 10:56 | RAD REPORT ---
EXAM DESCRIPTION: RAD - Chest Single View - 04/15/2020 10:49 am CLINICAL HISTORY: DYSPNEA Chest pain. COMPARISON: Chest Single View dated 01/02/2020; Chest Single View dated 12/28/2019; Chest Single View dated 08/22/2019; Chest Single View dated 12/30/2018 FINDINGS: Portable technique limits examination quality. The lungs are grossly clear. The heart is normal in size. No displaced fractures. IMPRESSION: No acute intrathoracic process suspected.
--- NOTE | 2020-04-15 11:38 | EDPHYS ---
Physician Documentation [facility] Name: Delia Salgado Age: 30 yrs Sex: Female : 1990 Arrival Date: 04/15/2020 Time: 09:52 Bed 13 Private MD: ED Physician Hao Terry HPI: 04/15 10:08 This 30 yrs old Female presents to ER via Unassigned with complaints of kb Shortness Of Breath, Passed Out Prior To Arrival. 10:08 Pt states she keeps falling asleep and it makes her oxygen low because she has sleep kb apnea. States her oxygen levels fall into the 50s normally when she sleeps so she uses a CPAP at night. States she normally catches herself when she is going to fall asleep and she makes herself wake up, but today she has fallen asleep 4 times while sitting. States she is not having syncopal episodes, she is just falling asleep. Historical: - Allergies: 09:55 No Known Allergies; aa5 - PMHx: 09:55 Sleep Apnea; CPAP; aa5 - PSHx: 09:55 Tubal ligation; aa5 - Immunization history:: Adult Immunizations unknown. - Social history:: Smoking status: Patient reports the use of cigarette tobacco products, smokes one-half pack cigarettes per day. ROS: 10:23 Constitutional: Negative for fever, chills, and weight loss, Cardiovascular: Negative kb for chest pain, palpitations, and edema, Respiratory: Negative for shortness of breath, cough, wheezing, and pleuritic chest pain, Abdomen/GI: Negative for abdominal pain, nausea, vomiting, diarrhea, and constipation, Back: Negative for injury and pain, MS/Extremity: Negative for injury and deformity, Skin: Negative for injury, rash, and discoloration, Neuro: Negative for headache, weakness, numbness, tingling, and seizure. Exam: 10:25 Constitutional: This is a well developed, well nourished patient who is awake, alert, kb and in no acute distress. Head/Face: Normocephalic, atraumatic. Chest/axilla: Normal chest wall appearance and motion. Nontender with no deformity. No lesions are appreciated. Cardiovascular: Regular rate and rhythm with a normal S1 and S2. No gallops, murmurs, or rubs. Normal PMI, no JVD. No pulse deficits. Respiratory: Lungs have equal breath sounds bilaterally, clear to auscultation and percussion. No rales, rhonchi or wheezes noted. No increased work of breathing, no retractions or nasal flaring. Abdomen/GI: Soft, non-tender, with normal bowel sounds. No distension or tympany. No guarding or rebound. No evidence of tenderness throughout. Skin: Warm, dry with normal turgor. Normal color with no rashes, no lesions, and no evidence of cellulitis. MS/ Extremity: Pulses equal, no cyanosis. Neurovascular intact. Full, normal range of motion. Neuro: Awake and alert, GCS 15, oriented to person, place, time, and situation. Cranial nerves II-XII grossly intact. Motor strength 5/5 in all extremities. Sensory grossly intact. Cerebellar exam normal. Normal gait. Vital Signs: 10:27 BP 134 / 53; Pulse 80; Resp 16 S; Pulse Ox 96% on R/A; ca1 11:43 BP 113 / 65; Pulse 76; Resp 18 S; Pulse Ox 95% on R/A; ca1 MDM: 09:58 Patient medically screened. 10:23 Data reviewed: vital signs, nurses notes. Data interpreted: Pulse oximetry: on room air kb is 97 %. Interpretation: normal. 10:25 ED course: Pt states she is not short of breath. States her oxygen always goes down kb when she's sleeping unless she is using the CPAP. Denies cough, congestion, fever. . 11:36 Data reviewed: I have discussed the patient's presentation/case with the attending Emergency Department Physician;. Counseling: I had a detailed discussion with the patient and/or guardian regarding: the historical points, exam findings, and any diagnostic results supporting the discharge/admit diagnosis, lab results, radiology results, the need for outpatient follow up, a family practitioner, to return to the emergency department if symptoms worsen or persist or if there are any questions or concerns that arise at home. 04/15 10:04 Order name: ABG; Complete Time: 10:52 kb 04/15 10:04 Order name: Chest Single View XRAY; Complete Time: 11:01 kb 04/15 10:04 Order name: EKG; Complete Time: 10:04 kb 04/15 10:04 Order name: EKG - Nurse/Tech; Complete Time: 10:24 kb Administered Medications: No medications were administered Disposition: 14:01 Co-signature as Attending Physician, aHo Terry MD. rn Disposition: 04/15/20 11:37 Discharged to Home. Impression: Sleep apnea. - Condition is Stable. - Discharge Instructions: Sleep Studies. - Medication Reconciliation Form, Thank You Letter, Antibiotic Education, Prescription Opioid Use, Work release form form. - Follow up: Emergency Department; When: As needed; Reason: Worsening of condition. Follow up: Private Physician; When: 2 - 3 days; Reason: Recheck today's complaints, Continuance of care, Re-evaluation by your physician. Signatures: Dispatcher [employer] EDMS Radha Guo, THERMAL TECHNICIAN-C THERMAL TECHNICIAN-Hao Norton MD MD rn Calderon, Audri, RN RN aa5 Martha Perez RN RN ca1 Corrections: (The following items were deleted from the chart) 11:55 11:37 04/15/2020 11:37 Discharged to Home. Impression: Sleep apnea. Condition is ca1 Stable. Forms are Medication Reconciliation Form, Thank You Letter, Antibiotic Education, Prescription Opioid Use. Follow up: Emergency Department; When: As needed; Reason: Worsening of condition. Follow up: Private Physician; When: 2 - 3 days; Reason: Recheck today's complaints, Continuance of care, Re-evaluation by your physician. kb
--- NOTE | 2020-04-15 11:38 | ER ---
Nurse's Notes [facility] Name: Delia Salgado Age: 30 yrs Sex: Female : 1990 Arrival Date: 04/15/2020 Time: 09:52 Bed 13 Private MD: Diagnosis: Sleep apnea Presentation: 04/15 09:55 Chief complaint: Patient states: "I keep falling asleep and I have sleep apnea so I can aa5 feel my oxygen going low and it gives me a headache". 09:55 Coronavirus screen: Client denies travel out of the [place] in the last 14 days. At this aa5 time, the client does not indicate any symptoms associated with coronavirus-19. Ebola Screen: Patient negative for fever greater than or equal to 101.5 degrees Fahrenheit, and additional compatible Ebola Virus Disease symptoms. Initial Sepsis Screen: Does the patient meet any 2 criteria? No. Patient's initial sepsis screen is negative. Does the patient have a suspected source of infection? No. Patient's initial sepsis screen is negative. Risk Assessment: Do you want to hurt yourself or someone else? Patient reports no desire to harm self or others. Onset of symptoms was April 2020. 09:55 Acuity: GARETH 3 aa5 09:55 Method Of Arrival: Ambulatory aa5 Historical: - Allergies: 09:55 No Known Allergies; aa5 - PMHx: 09:55 Sleep Apnea; CPAP; aa5 - PSHx: 09:55 Tubal ligation; aa5 - Immunization history:: Adult Immunizations unknown. - Social history:: Smoking status: Patient reports the use of cigarette tobacco products, smokes one-half pack cigarettes per day. Screenin:10 Abuse screen: Denies threats or abuse. Denies injuries from another. Nutritional ca1 screening: No deficits noted. Tuberculosis screening: No symptoms or risk factors identified. Fall Risk None identified. Assessment: 10:10 General: Appears in no apparent distress. obese, Behavior is drowsy, sleeping and ca1 snoring. . Pain: Denies pain. Neuro: Level of Consciousness is lethargic, Oriented to person, place, time, situation. Cardiovascular: Heart tones S1 S2 present Capillary refill < 3 seconds Patient's skin is warm and dry. Rhythm is sinus rhythm. Respiratory: Airway is patent Respiratory effort is even, unlabored, Respiratory pattern is regular, symmetrical, Breath sounds are clear bilaterally. GI: Abdomen is round non-distended, obese, Bowel sounds present X 4 quads. Abd is soft and non tender X 4 quads. : No signs and/or symptoms were reported regarding the genitourinary system. EENT: No signs and/or symptoms were reported regarding the EENT system. Derm: Skin is intact, is healthy with good turgor, Skin is pink, warm \\T\\ dry. Musculoskeletal: Circulation, motion, and sensation intact. Capillary refill < 3 seconds. 10:30 Reassessment: Patient appears in no apparent distress at this time. No changes from ca1 previously documented assessment. PT O2 sats go down to 50 2 - 3 minutes in to sleep. Goes up to 90s when woken. Provider aware. 10:56 Reassessment: Patient appears in no apparent distress at this time. No changes from ca1 previously documented assessment. 11:43 Reassessment: Patient appears in no apparent distress at this time. No changes from ca1 previously documented assessment. Easily wakes with verbal stimuli.. Vital Signs: 10:27 BP 134 / 53; Pulse 80; Resp 16 S; Pulse Ox 96% on R/A; ca1 11:43 BP 113 / 65; Pulse 76; Resp 18 S; Pulse Ox 95% on R/A; ca1 ED Course: 09:52 Patient arrived in ED. as 09:54 Radha [facility] F[facility]-C [facility] kb 09:54 Hao Terry MD is Attending Physician. kb 09:55 Arm band placed on Patient placed in an exam room, on a stretcher. aa5 10:07 Martha Perez, JOANNE is Primary Nurse. ca1 10:10 Patient has correct armband on for positive identification. Bed in low position. Call ca1 light in reach. Side rails up X2. Pulse ox on. NIBP on. Warm blanket given. Head of bed elevated. 10:10 No provider procedures requiring assistance completed. Patient did not have IV access ca1 during this emergency room visit. 10:20 Triage completed. aa5 10:50 Chest Single View XRAY In Process Unspecified. EDMS Administered Medications: No medications were administered Outcome: 11:37 Discharge ordered by . kb 11:54 Discharged to home via wheelchair. ca1 11:54 Condition: stable 11:54 Discharge instructions given to patient, Instructed on discharge instructions, follow up and referral plans. Demonstrated understanding of instructions, follow-up care. 11:55 Patient left the ED. ca1 Signatures: Dispatcher [employer] Radha Jones, CONSTANCE BRODY-Sirisha Diaz Audri, RN RN aa5 Martha Perez RN RN ca1 Corrections: (The following items were deleted from the chart) 11:45 11:43 Reassessment: Patient appears in no apparent distress at this time. No changes ca1 from previously documented assessment. ca1
[2020-04-15 12:00] VITALS: BP 113/65; O2SAT 95
--- NOTE | 2020-04-15 16:10 | EKG ---
Test Date: 2020-04-15 Test Time: 10:20:56 Fruit Grader: KRUPA MEASUREMENT RESULTS: Intervals: Rate: 73 HI: 128 QRSD: 90 QT: 382 QTc: 420 [place]: P: 23 HI: 128 QRS: 70 T: -5 INTERPRETIVE STATEMENTS: Normal sinus rhythm Low voltage QRS Cannot rule out Inferior infarct, age undetermined Cannot rule out Anterior infarct, age undetermined Abnormal ECG Compared to ECG 08/23/2019 02:02:15 Low QRS voltage now present Myocardial infarct finding now present Short HI interval no longer present Electronically Signed On 04-15-20 16:08:35 TROUBLE LINEMAN by Daryn Hendricks
--- NOTE | 2020-04-16 11:23 | EKG ---
Test Date: 2020-04-15 Test Time: 10:35:17 It Architect: SU MEASUREMENT RESULTS: Intervals: Rate: 69 CO: 118 QRSD: 90 QT: 374 QTc: 400 [place]: P: 12 CO: 118 QRS: 72 T: 17 INTERPRETIVE STATEMENTS: Normal sinus rhythm Cannot rule out Anterior infarct, age undetermined Abnormal ECG Compared to ECG 04/15/2020 10:20:56 No significant changes Electronically Signed On 04-16-20 11:20:54 PROPERTY CONSULTANT by Daryn Hendricks
== END 2020-04-15 11:55 | disposition home or self-care (01) ==
LOC: ER 09:52
DX: G47.30 Sleep apnea, unspecified (principal); F17.210 Nicotine dependence, cigarettes, uncomplicated
CPT/HCPCS: 71045; 82805; 93005; 99284